=== PATIENT | female | born 1965 | race Caucasian/White ===

== ENCOUNTER 2017-11-11 19:39 | Emergency (ER) | payer MEDICARE, SELFPAY ==
[2017-11-11 19:41] VITALS: BP 133/79; PULSE 75; RESP 18; TEMP 36.7; O2SAT 99; BMI 27.8
[2017-11-11] MEDS: Orphenadrine 60 MG/2 ML Ampul IM (21:58)
[2017-11-11] MEDS: Ketorolac 15 MG/ML Vial IM (21:58)
--- NOTE | 2017-11-11 22:24 | ED.VISSUMM ---
- ER Visit Summary Date of Service: 11/11/17 Chief Complaint: Back pain History of Present Illness: The patient is a 52 F presenting for evaluation secondary to back pain. Patient states she is an onset of lower back pain over the course last 3-4 days she denies any injury associated with this. It is located in her lower back. There is some radiation to the left hip but nothing down the leg. She denies any bowel or bladder incontinence. Denies any fevers. Denies any personal history of IV drug abuse. No fevers or weight loss. Physical Examination: Vitals: Within normal limits General: Well-nourished well-developed no acute distress Head: Normocephalic atraumatic ENT: Moist mucous membranes Neck: Supple no JVD Cardiovascular: Heart regular rate and rhythm no murmurs Respiratory: Respirations nondistressed, lung sounds clear to auscultation bilaterally Abdominal: Soft, nontender, nondistended, normal bowel sounds, no evidence of abdominal masses or pulsatile mass Back: Normal to inspection, no midline tenderness to palpation, straight leg raise negative bilaterally, there is left paraspinal tenderness to palpation Extremities: Nontender, nonedematous, 2+ radial and PT pulses bilaterally symmetric Skin: Normal color no rash Neuro: 5/5 strength hip flexion, knee flexion, knee extension, dorsiflexion, plantarflexion, EHL. Sensation intact over all dermatomes of the lower extremities bilaterally, 2+ patellar and Achilles reflexes bilaterally symmetric, negative clonus bilaterally Test Results: None indicated Emergency Department Course and Treatment: Patient presented secondary to back pain. She has paraspinal pain, this seems mostly muscular in etiology. Patient was given a dose of Toradol and Norflex in the emergency department. Patient be discharged with a course of Naprosyn and Medrol for treatment of her pain. She was instructed to follow-up with her PCP. Disposition: Discharge Impression: 1. Lumbosacral strain This note was generated with [employer] dictation software. It may contain incorrect words, spelling, and punctuation that were not noted in review of the chart prior to signing ED Disposition - Plan for ED Patient: Disposition: Home or Assisted Living Chief Complaint: Back Diagnosis: Back pain Instructions: ED Neck Back Pain General Prescriptions: MethylPREDNISolone DosePak [Medrol DosePak] 4 mg PO UD #1 box Naproxen [Naprosyn] 500 mg PO BID PRN #20 tab Referrals: Argenis Dill, AIRCRAFT SALES REPRESENTATIVE-C [Primary Care Provider] - 5-7 Days
[2017-11-11 22:39] VITALS: BP 138/99; PULSE 69; RESP 18; O2SAT 99
== END 2017-11-11 22:40 | disposition home or self-care (01) ==
PROVIDERS: Emergency Provider Emergency Medicine; Family Provider Nurse Practitioner Family; PCP Nurse Practitioner Family
DX: S39.012A Strain of muscle, fascia and tendon of lower back, initial encounter (principal); X58.XXXA Exposure to other specified factors, initial encounter; Y93.9 Activity, unspecified; Y92.89 Other specified places as the place of occurrence of the external cause; Y99.9 Unspecified external cause status; Z98.1 Arthrodesis status
CPT/HCPCS: 96372; 99283

== ENCOUNTER → 2018-02-19 08:34 | Outpatient (CLI) | payer MEDICARE, SELFPAY ==
--- NOTE | 2018-02-19 08:43 | RAD_ITS ---
STUDY: X-RAY - ESOPHAGUS (BARIUM SWALLOW) WITH FLUOROSCOPY REASON FOR EXAM: Female, 52 years old. Dysphagia for solids. TECHNIQUE: 12 view(s) of the esophagus were obtained following swallowing of barium. FLUOROSCOPY TIME (if supplied): (0:25) minutes/seconds COMPARISON: None. FINDINGS: There is no demonstrated esophageal foreign body. There is no demonstrated stricture or mucosal abnormality. Normal gastroesophageal junction, without a demonstrated hiatal hernia. The patient ingested a 12 mm tablet of barium without any difficulty. Normal visualized aortic arch and descending thoracic aorta. Normal visualized pulmonary parenchyma. Normal visualized osseous structures of the thorax. RAD/Esophagus Only IMPRESSION: Normal plain film x-ray examination (barium swallow) of the esophagus. Electronically Signed: Iglesia Mendez MD at 10:04 EDT Tel [phone], Service support ,
--- NOTE | 2018-02-19 08:43 | RAD_ITS ---
STUDY: X-RAY CHEST REASON FOR EXAM: Female, 52 years old. Dysphagia. TECHNIQUE: PA and lateral views of the chest. COMPARISON: None. FINDINGS: The lungs are clear and expanded. Scattered calcified granulomas. There is no demonstrated pleural abnormality. Normal size heart. Normal mediastinum and tanya. Normal visualized pulmonary arteries. Normal visualized aortic arch and descending thoracic aorta. Normal visualized thoracic spine. Prior fusion of the lower cervical spine. There is no demonstrated abnormality of the visualized soft tissue structures of the upper abdomen. RAD/Chest PA and Lateral IMPRESSION: No acute abnormality is seen. Electronically Signed: Iglesia Mendez MD at 14:11 EDT Tel [phone], Service support ,
== END ==
PROVIDERS: Family Provider Nurse Practitioner Family; PCP Nurse Practitioner Family; Visit Provider Otolaryngology Otolaryngology/Facial Plastic Surgery
DX: R05 Cough (principal); R13.10 Dysphagia, unspecified; J02.9 Acute pharyngitis, unspecified
CPT/HCPCS: 71046; 74220; 87070; 87077; 87186

== ENCOUNTER 2018-05-07 08:35 | Observation (INO) | payer MEDICARE, SELFPAY ==
[2018-05-07] VITALS (13 sets, daily range): BP systolic 101–136; BP diastolic 56–85; PULSE 61–85; RESP 14–18; TEMP 36.4–36.7; O2SAT 94–98; BMI 29.7; BMI 29.2
--- NOTE | 2018-05-07 08:49 | ED.RN ---
CANNOT OBTAIN OLD EKG - MUSE IS DOWN
--- NOTE | 2018-05-07 08:56 | ED.VISSUMM ---
- ER Visit Summary Date of Service: 05/07/18 Chief Complaint: Chest pain History of Present Illness: The patient is a 52 F past medical history of high cholesterol and hypothyroidism. Patient has no known history of cardiac disease and states she had a negative stress test years ago but nothing done recently. She is complaining of intermittent chest pressure and heaviness over the last several weeks or longer. At times it is exertional. At times she does have shortness of breath and nausea. The last couple days she has had episodes of diaphoresis associated with it with pain radiating to her right arm and neck. She denies any pleuritic pain. No history of DVT or PE. No hemoptysis. No leg pain or swelling. She is a smoker and has smoked for years. She denies any melena. Physical Examination: Well-appearing middle-age female. Vital signs are stable afebrile. Pulse ox 97% on room air no hypoxia. H EENT exam unremarkable. Neck nontender no JVD. Lungs clear to auscultation bilaterally. Heart regular rate and rhythm no murmur. Chest wall has mild soreness. Abdomen is soft and nontender. Normal bowel sounds. No peritoneal signs. She is moving all 4 extremities. They are equal symmetrical. Calves are nontender. No edema or cords. Radial pulses are equal and symmetrical. Back nontender. Neurologic exam no focal motor deficits. Awake alert following commands. Test Results: Portable chest x-ray 1 view no acute abnormality read both by myself the radiologist. CBC normal. BMP unremarkable. Troponin normal. EKG sinus rhythm rate 85. There is ST segment flattening in 2 3 and aVF and also V4 5 and 6. There is no old EKG available for comparison. There is no [place]. Emergency Department Course and Treatment: Patient will receive p.o. aspirin. She will undergo a cardiac workup. Given she is 52, has a sister with a recent stent, a smoker and has a pretty good story for exertional shortness of breath and chest pain I will recommend admission. Treatment Plan: Repeat exam the patient is doing well on his results and she is comfortable being admitted and having further workup. I very spoken to the hospitalist Dr. Kailey Weller. And I am going to speak to 1 of the typesetters printer. Disposition: Admission Impression: Acute chest pain with exertional dyspnea Tobacco abuse This note was generated with [employer] dictation software. It may contain incorrect words, spelling, and punctuation that were not noted in review of the chart prior to signing ED Disposition - Plan for ED Patient: Chief Complaint: Chest Pain Referrals: Argenis Dill NP-C [Primary Care Provider] -
--- NOTE | 2018-05-07 08:59 | ED.DCSUM_ITS ---
- ER Visit Summary Date of Service: 05/07/18 Chief Complaint: Chest pain History of Present Illness: The patient is a 52 F past medical history of high cholesterol and hypothyroidism. Patient has no known history of cardiac disease and states she had a negative stress test years ago but nothing done recently. She is complaining of intermittent chest pressure and heaviness over the last several weeks or longer. At times it is exertional. At times she does have shortness of breath and nausea. The last couple days she has had episodes of diaphoresis associated with it with pain radiating to her right arm and neck. She denies any pleuritic pain. No history of DVT or PE. No hemoptysis. No leg pain or swelling. She is a smoker and has smoked for years. She denies any melena. Physical Examination: Well-appearing middle-age female. Vital signs are stable afebrile. Pulse ox 97% on room air no hypoxia. H EENT exam unremarkable. Neck nontender no JVD. Lungs clear to auscultation bilaterally. Heart regular rate and rhythm no murmur. Chest wall has mild soreness. Abdomen is soft and nontender. Normal bowel sounds. No peritoneal signs. She is moving all 4 extremities. They are equal symmetrical. Calves are nontender. No edema or cords. Radial pulses are equal and symmetrical. Back nontender. Neurologic exam no focal motor deficits. Awake alert following commands. Test Results: Portable chest x-ray 1 view no acute abnormality read both by myself the radiologist. CBC normal. BMP unremarkable. Troponin normal. EKG sinus rhythm rate 85. There is ST segment flattening in 2 3 and aVF and also V4 5 and 6. There is no old EKG available for comparison. There is no [place]. Emergency Department Course and Treatment: Patient will receive p.o. aspirin. She will undergo a cardiac workup. Given she is 52, has a sister with a recent stent, a smoker and has a pretty good story for exertional shortness of breath and chest pain I will recommend admission. Treatment Plan: Repeat exam the patient is doing well on his results and she is comfortable being admitted and having further workup. I very spoken to the hospitalist Dr. Kailey Weller. And I am going to speak to 1 of the supervisor toy parts former. Disposition: Admission Impression: Acute chest pain with exertional dyspnea Tobacco abuse This note was generated with [employer] dictation software. It may contain incorrect words, spelling, and punctuation that were not noted in review of the chart prior to signing ED Disposition - Plan for ED Patient: Chief Complaint: Chest Pain Referrals: Argenis Dill NP-C [Primary Care Provider] -
[2018-05-07 09:07] LABS: Absolute Lymphocyte Count 1.93 X10^3/ul (0.83-4.51); Absolute Neutrophil Count 5.2 X10^3/uL (2.0-7.7); Basophil# 0.02 X10^3/uL; Basophil% 0.3 % (0-1); Eosinophil# 0.13 X10^3/uL; Eosinophils% 1.6 % (0-5); Hematocrit 43.1 % (37-47); Hemoglobin 15.2 g/dl (12.0-15.0); Lymphocyte # 1.93 X10^3/ul (4.0); Lymphocyte % 24.5 % (19-41); Mean Corp Hgb Conc 35.3 g/gl (32-36); Mean Corpuscular Hgb 33.2 pg (27.0-32.0); Mean Corpuscular Volume 94.1 fL (81-99); Mean Platelet Vol. 11.6 fl (6.2-12.0); Monocyte# 0.57 X10^3/uL; Monocyte% 7.2 % (0-10); Neutrophil # 5.22 X10^3/uL (2.7-7.7); Neutrophil % 66.3 % (47-70); Platelet Count 145 K/mm3 (150-450); RBC Distribution Width CV 13.3 % (11.6-14.6); RBC Distribution Width SD 43.9 fl (35.1-43.9); Red Blood Count 4.58 M/mm3 (4.2-5.4); White Blood Count 7.9 K/mm3 (4.4-11.0)
[2018-05-07 09:08] LABS: POSITIVE COUNT NO; POSITIVE DIFFERENTIAL NO; POSITIVE MORPHOLOGY NO
[2018-05-07 09:24] LABS: Anion Gap 7 (5-15); BUN 17 mg/dL (7-18); BUN/Creat Ratio 19.1 RATIO (10-20); Calcium,Total 9.2 mg/dL (8.5-10.1); Chloride 107 mmol/L (98-107); Creatinine, Serum 0.89 mg/dL (0.55-1.02); EST Glomerular Filtration Rate 71 mL/min (>60); Est Glom Filt Rate - Afr Amer 86 mL/min (>60); Estimated Creatinine Clearance 57.06 ml/min; Glucose 165 mg/dL (74-106); Potassium 3.8 mmol/L (3.5-5.1); Sodium Level 140 mmol/L (136-145)
--- NOTE | 2018-05-07 09:36 | PCM.HP.STD ---
Problem List (1) Chest discomfort Status: Acute (2) COPD (chronic obstructive pulmonary disease) Status: Suspected Qualifiers: COPD type: unspecified COPD Qualified Code(s): J44.9 - Chronic obstructive pulmonary disease, unspecified (3) HLD (hyperlipidemia) Status: Chronic Qualifiers: Hyperlipidemia type: unspecified Qualified Code(s): E78.5 - Hyperlipidemia, unspecified (4) Chronic low back pain Status: Chronic Qualifiers: Back pain laterality: unspecified Sciatica presence: unspecified whether sciatica present Qualified Code(s): M54.5 - Low back pain; G89.29 - Other chronic pain (5) Hypothyroidism Status: Chronic Qualifiers: Hypothyroidism type: unspecified Qualified Code(s): E03.9 - Hypothyroidism, unspecified (6) Gastroesophageal reflux disease Status: Chronic Qualifiers: Esophagitis presence: esophagitis presence not specified Qualified Code(s): K21.9 - Gastro-esophageal reflux disease without esophagitis (7) Depression Status: Chronic Qualifiers: Depression Type: unspecified Qualified Code(s): F32.9 - Major depressive disorder, single episode, unspecified (8) Asthma Status: Chronic Qualifiers: Asthma severity: unspecified severity Asthma persistence: unspecified Asthma complication type: unspecified Qualified Code(s): J45.909 - Unspecified asthma, uncomplicated History of Present Illness Date of Admission: 05/07/18 Chief Complaint: Chest pain The patient is a 52 y/o F w/ PMHx: Tobacco use (09/24 ppd), HLD, Hypothyroidism, COPD, Anxiety and Depression, GERD, Chronic COPD, Overweight, Former Polysubstance abuse and EtOH abuse (Clean and sober x 9 years) who presents to the [facility] ED on 05/07/18 with history of ongoing intermittent chest discomfort described as pressure and tightness across the chest, occurring with both exertion and at rest, with onset initially this past Thursday with radiation into the jaw on the right side as well as the right upper extremity with resolution after several minutes with associated nausea, dyspnea and diaphoresis with return twice on Thursday lasting initially 10 minutes and the second time in our with resolution while in the emergency room. In the ED workup included T 97.9, heart rate 64, BP 113/74, respiratory rate 16, 98% room air, CBC unremarkable except platelet count 125, unremarkable BMP aside glucose 165, troponin normal ?1, EKG with no comparison but noted flattened T waves in II, III, aVF, V4, V5, V6, CXR without no acute process. In the ED Cardiology Dr. Rocha consulted per Dr. Weir with evaluation and decision for transition following admission to cardiac catheterization. In the ED patient administered ASA 324 mg po x 1, plavix load 300 mg po x 1. Past Medical History Past Medical History (Chronic Problems): Chronic Problems HLD (hyperlipidemia) (Chronic) Status post lumbar spinal fusion (Chronic) Chronic low back pain (Chronic) Hypothyroidism (Chronic) Gastroesophageal reflux disease (Chronic) Depression (Chronic) Asthma (Chronic) Allergies acetaminophen [From Percocet] Allergy (Verified 05/07/18 08:38) Hives famotidine [From Pepcid] Allergy (Verified 05/07/18 08:38) Other icosapent ethyl [From Vascepa] Allergy (Verified 05/07/18 08:38) Other lamotrigine [From Lamictal] Allergy (Verified 05/07/18 08:38) Shortness of breath latex Allergy (Verified 05/07/18 08:38) Hives oxycodone [From Percocet] Allergy (Verified 05/07/18 08:38) Hives Penicillins Allergy (Verified 05/07/18 08:38) Hives pravastatin [From Pravachol] Allergy (Verified 05/07/18 08:38) Hives topiramate Allergy (Verified 05/07/18 08:38) Other ziprasidone HCl [From Geodon] Allergy (Verified 05/07/18 08:38) Shortness of breath ziprasidone mesylate [From Geodon] Allergy (Verified 05/07/18 08:38) Shortness of breath Home Medications: Ambulatory Orders Medication Instructions Recorded Albuterol Inhaler [Ventolin Hfa] 2 puff INHALATION Q4H PRN PRN 04/06/14 Fluticasone/Salmeterol [Advair 1 puff INHALATION DAILY 04/06/14 500/50 Mcg Diskus] Loratadine [Claritin] 10 mg PO DAILY 04/06/14 Cyclobenzaprine [Flexeril] 5 mg PO BID PRN PRN 11/11/17 Sertraline HCl [Zoloft] 100 mg PO QHS 11/11/17 traZODone [Desyrel] 1 - 2 tab PO QHS PRN 11/11/17 Aspirin [Aspirin EC] 325 mg PO DAILY 05/07/18 Bacillus Coagulans [Probiotic] 1 each PO DAILY 05/07/18 Ergocalciferol [Vitamin D] 50,000 units PO QWEEK 05/07/18 Gemfibrozil [Lopid] 600 mg PO BID 05/07/18 Levothyroxine [Synthroid] 75 mcg PO DAILY 05/07/18 Metronidazole 500 mg PO BID 05/07/18 Multivitamin [Multiple Vitamins] 1 each PO DAILY 05/07/18 Pantoprazole Sodium [Protonix] 40 mg PO DAILY 05/07/18 Rosuvastatin Calcium [Crestor] 10 mg PO DAILY 05/07/18 Surgical History: - - Right breast cyst removal, hysterectomy, lumbar and cervical fusion, cholecystectomy, appendectomy, TMJ surgery, left arthroscopic shoulder surgery, left fifth finger amputation. 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 Tobacco Use: Cigarettes Alcohol: Sober - Sober ?9 years. Drugs: - - Clean status ?9 years, prior usage included cocaine, crank, crack, snorted as well as smoked and oral intake but no IV drug abuse history. - *Family History Maternal History Items: - - Maternal family history of high blood pressure, heart disease, anemia, breast cancer, vertigo. Paternal History Items: - - Paternal family history of hypertension, cancer, congestive heart failure, coronary artery disease status post CABG, gout, diabetes. Sibling History Items: - - Sister with history of diabetes as well as coronary disease. Review of Systems Constitutional: Reports: Malaise, Weakness, Fatigue. Denies: Chills, Fever, Weight Change HEENT: Reports: Head Aches. Denies: Sinus Congestion, Sinus Drainage Cardiovascular: Reports: Chest Pain, Chest Pressure, Chest Tightness. Denies: Palpitations Respiratory: Reports: Shortness of Breath. Denies: Cough, Shortness of breath at rest, Sputum production Gastrointestinal: Reports: Nausea. Denies: Abdominal Pain, Vomiting Genitourinary: Denies: Dysuria Musculoskeletal: Denies: Joint Pain, Joint Tenderness Skin: Denies: Rash, Wounds Neurological: Denies: Numbness, Tingling, Focal weakness Psychiatric: Reports: Anxiety, Depression. 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 Patient Problems: Active and Suspected Problems Chest discomfort (Acute) COPD (chronic obstructive pulmonary disease) (Suspected) Subjective: Seated upright in bed, no acute distress, no current chest discomfort. Objective: Physical Examination: General: awake, alert, oriented x 3 and cooperative, seated upright in bed in no apparent distress. Skin: normal color, turgor, no icterus, cyanosis. HEENT: AT/NC, EOMI, PERRLA, MMM, no carotid bruits or JVD noted. Lungs: CTA bilaterally, moderate effort, mild decrease BL bases, no rales, ronchi or wheezing. Heart: Regular rate and rhythm; no gallop, rub audible. Abdomen: soft, overweight, NTTP, ND, normal BS, no HSM. Extremities: no cyanosis, clubbing, or edema, status post left hand fifth digit amputation. Neurological: patient awake, alert, oriented x 3; cognitive function intact; pupils equally reactive to light and accomodation; cranial nerves II-XII grossly normal, moving all 4 extremities, no focal deficits, strength preserved. Psychiatric: affect appears anxious with transition to cardiac catheterization, no acute evidence of depressive feelings. - Physical Exam Vital Signs Temp Pulse Resp BP Pulse Ox 97.5 F L 85 14 136/85 H 97 05/07/18 08:36 05/07/18 08:36 05/07/18 08:36 05/07/18 08:36 05/07/18 08:36 Oxygen Delivery Method Room Air Weight: 157 lb 6.561 oz Body Mass Index (BMI) 29.7 Finger Stick Blood Glucose 68 Laboratory Tests Past 24 Hrs 05/07/18 05/07/18 09:00 09:00 WBC 7.9 RBC 4.58 Hgb 15.2 H Hct 43.1 MCV 94.1 MCH 33.2 H MCHC 35.3 RDW 13.3 RDW Differential 43.9 Plt Count 145 L MPV 11.6 Immature Gran % (Auto) 0.100 Neut % (Auto) 66.3 Lymph % (Auto) 24.5 [place] % (Auto) 7.2 Eos % (Auto) 1.6 Baso % (Auto) 0.3 Absolute Neuts (auto) 5.2 Absolute Lymphs (auto) 1.93 Total Counted Not Reportable Sodium 140 Potassium 3.8 Chloride 107 Carbon Dioxide 26.0 Anion Gap 7 BUN 17 Creatinine 0.89 Estim Creat Clear Calc 57.06 Est GFR (MDRD) Af Amer 86 Est GFR (MDRD) Non-Af 71 BUN/Creatinine Ratio 19.1 Glucose 165 H Calcium 9.2 Troponin I < 0.015 Assessment/Plan All Active Problems Chest discomfort (Acute) The patient is a 52 y/o F w/ PMHx: Tobacco use (09/24 ppd), HLD, Hypothyroidism, COPD, Anxiety and Depression, GERD, Chronic COPD, Overweight, Former Polysubstance abuse and EtOH abuse who presents to the [facility] ED on 05/07/18 with history of ongoing intermittent chest discomfort described as pressure and tightness across the chest, occurring with both exertion and at rest, with onset initially this past Thursday with radiation into the jaw on the right side as well as the right upper extremity with resolution after several minutes with associated nausea, dyspnea and diaphoresis with return twice on Thursday lasting initially 10 minutes and the second time in our with resolution while in the emergency room. (1) Chest Pain w/ concern for ACS: ED workup included T 97.9, heart rate 64, BP 113/74, respiratory rate 16, 98% room air, CBC unremarkable except platelet count 125, unremarkable BMP aside glucose 165, troponin normal ?1, EKG with no comparison but noted flattened T waves in II, III, aVF, V4, V5, V6, CXR without no acute process. In the ED patient administered ASA 324 mg po x 1, plavix load 300 mg po x 1. Will admit to PCU, maintain on a monitored bed, continue serial cardiac enzymes and EKGs. Obtained magnesium level upon admission, 2.0, normal. Continue medical management w/ asa, plavix loaded as noted, hold on addition BB given low normal BP, statin w/ AM FLP. Cardiology consulted, plan for cardiac catheterization. Maintain NPO. ASA, NG, morphine. If cardiac catheterization negative given resolution of symptoms would plan discharge to home if cardiology amenable. (2) Asthma/Suspected Chronic COPD: ATC duonebs, PRN albuterol, HOB, IS parameters. (3) Hyperlipidemia: Continue home statin regimen. AM FLP. (4) Hypothyroidism: Continue home synthroid regimen, TSH and FT4 obtained, normal. (5) Tobacco Abuse: Encouraged cessation, inpatient consultation per RT, NR if desired. (6) Anxiety and depression: Continue home Zoloft and trazodone regimen. (7) Thrombocytopenia, mild: Admission platelet 145, unclear baseline. (8) GERD: Continue home Protonix regimen. (9) Former polysubstance abuse, alcohol abuse history: Confirmed clean and sober ?9 years, encouraged continuation of this pathway. (10) Migraine Headaches: If cardiac catheterization unremarkable, her presentation could potentially due to an atypical complex migraine. Currently resolved as noted. (11) Recent Bacterial Vaginosis: Continue BID flagyl regimen. (12) DVT prophylaxis: SCDs, holding lovenox for planned cardiac catheterization per Dr. Rocha. Code Visit OBSV E&M: [id number] Initial observation care L3
[2018-05-07 11:12] LABS: Hemoglobin A1c 5.4 % (4.2-6.3)
[2018-05-07 11:13] LABS: T4 Free Direct 0.77 ng/dL (0.76-1.46); Thyroid Stim Hormone (TSH) 2.06 uIU/mL (0.358-3.74)
[2018-05-07] MEDS: 0.9% Normal Saline 1,000 ML 100 ML IV (11:28)
--- NOTE | 2018-05-07 12:30 | NURSING ---
Called report to Riki frances RN
[2018-05-07] MEDS: Clopidogrel Bisulfate 300 MG Tablet PO (13:09)
--- NOTE | 2018-05-07 13:20 | PCM.CONS.C ---
Reason for Consult Date of Consultation: 05/07/18 Reason for Consultation: Chest pain. History of Present Illness: The patient is a 52 year old F no previous cardiac history but a strong family history of coronary artery disease who presents to the emergency room complaining of chest discomfort which she says has been intermittent over the last few weeks. She had an episode yesterday as well as today described as a heaviness radiating to the right side of her jaw. There was no diaphoresis no nausea no dizziness or vomiting. Due to the concerns of the above as well as the increasing frequency she presented to the emergency room where she was evaluated. Her EKG did not demonstrate any significant abnormalities at this time. Initial troponins were negative she was admitted to the telemetry unit cardiology was consulted from the emergency room. [] Past Medical History Allergies/Adverse Reactions: Allergies acetaminophen [From Percocet] Allergy (Verified 05/07/18 08:38) Hives famotidine [From Pepcid] Allergy (Verified 05/07/18 08:38) Other icosapent ethyl [From Vascepa] Allergy (Verified 05/07/18 08:38) Other lamotrigine [From Lamictal] Allergy (Verified 05/07/18 08:38) Shortness of breath latex Allergy (Verified 05/07/18 08:38) Hives oxycodone [From Percocet] Allergy (Verified 05/07/18 08:38) Hives Penicillins Allergy (Verified 05/07/18 08:38) Hives pravastatin [From Pravachol] Allergy (Verified 05/07/18 08:38) Hives topiramate Allergy (Verified 05/07/18 08:38) Other ziprasidone HCl [From Geodon] Allergy (Verified 05/07/18 08:38) Shortness of breath ziprasidone mesylate [From Geodon] Allergy (Verified 05/07/18 08:38) Shortness of breath Home Medications: Ambulatory Orders Medication Instructions Recorded Albuterol Inhaler [Ventolin Hfa] 2 puff INHALATION Q4H PRN PRN 04/06/14 Fluticasone/Salmeterol [Advair 1 puff INHALATION DAILY 04/06/14 500/50 Mcg Diskus] Loratadine [Claritin] 10 mg PO DAILY 04/06/14 Cyclobenzaprine [Flexeril] 5 mg PO BID PRN PRN 02/21/18 Sertraline HCl [Zoloft] 100 mg PO QHS 11/11/17 traZODone [Desyrel] 1 - 2 tab PO QHS PRN 11/11/17 Aspirin [Aspirin EC] 325 mg PO DAILY 05/07/18 Bacillus Coagulans [Probiotic] 1 each PO DAILY 05/07/18 Ergocalciferol [Vitamin D] 50,000 units PO QWEEK 05/07/18 Gemfibrozil [Lopid] 600 mg PO BID 05/07/18 Levothyroxine [Synthroid] 75 mcg PO DAILY 05/07/18 Metronidazole 500 mg PO BID 05/07/18 Multivitamin [Multiple Vitamins] 1 each PO DAILY 05/07/18 Pantoprazole Sodium [Protonix] 40 mg PO DAILY 05/07/18 Rosuvastatin Calcium [Crestor] 10 mg PO DAILY 05/07/18 Past Medical History (Chronic Problems): Chronic Problems Status post lumbar spinal fusion (Chronic) Chronic low back pain (Chronic) Hypothyroidism (Chronic) Gastroesophageal reflux disease (Chronic) Depression (Chronic) Asthma (Chronic) Surgical History: spinal fusion Smoking Status: Current every day smoker Alcohol: Occasional Drugs: Cocaine, Marijuana Review of Systems - Review of Systems General: Denies: Fever, Night Sweats, Fatigue Cardiovascular: Reports: Chest Discomfort at Rest, Chest Discomfort with Exertion. Denies: Chest Discomfort, Shortness of Breath, Orthopnea, PND, Peripheral Edema, Palpitations, Lightheadedness, Dizziness, Near Syncope, Syncope Respiratory: Denies: Cough, Sputum Production, Hemoptysis Gastrointestinal: Denies: Hematemesis, Hematochezia, Melena Genitourinary: Denies: Dysuria, Hematuria Skin: Denies: Rash Subjectve: Pleasant lady in no apparent distress Objective: Vital Signs Temp Pulse Resp BP Pulse Ox 97.9 F 65 16 110/69 98 05/07/18 10:40 05/07/18 11:00 05/07/18 10:40 05/07/18 10:41 05/07/18 10:40 Oxygen Flow Rate (L/min) 2 Oxygen Delivery Method Room Air Weight: 154 lb 8.705 oz Body Mass Index (BMI) 29.2 General: Awake, Alert, Oriented x 3 HEENT: PERRL, EOMI, Sclera Non Icteric Neck: Supple, Good ROM, No Lymph Node Enlargement Lungs: Clear to auscultation Cardiovascular: Regular Rhythm, Normal S1, Normal S2, No Murmurs, No Rubs, No Gallops Vascular: No Carotid Bruits, Normal Femoral Pulses, Normal Radial Pulses, Normal Dorsalis Pedal Pulse, Normal Posterior Tibial Pulses Abdomen: Bowel Sounds Present, Soft, Non Tender, No HSM, No Organomegaly Extremities: No Cyanosis, No Clubbing, No edema Neurological: No Focal Motor or Sensory Deficit 05/07/18 12:00: Troponin I < 0.015 Rhythm: EKG: Normal sinus rhythm with no acute changes rate of 65 bpm is noted. Assessment/Plan 1. Chest pain. Patient presents with chest pain which appears to be concerning for angina. She has had worsening of the discomfort over the last few weeks as well as a strong family history of coronary disease as well as drug use. Due to the above constellation of findings it was felt that the prudent approach would be to evaluate her coronary anatomy to definitively exclude coronary artery disease. This was discussed with the patient and her family as well as the hospitalist. All in agreement. The above will be performed later today and further recommendations made. 2. Hyperlipidemia Will institute aggressive risk factor modification with statin. 3. Tobacco use Patient has been significantly counseled regarding the above. Thank you for allowing me to participate in the care of your patient. Please don't hesitate to call if any issues arise
[2018-05-07 13:23] LABS: Pregnancy, Serum, hCG Quali. NEGATIVE Negative (0-9 Nonpreg)
--- NOTE | 2018-05-07 14:55 | PCM.DC ---
- Discharge Diagnoses Current Active Problems: Current Active and Chronic Problems (1) Chest Pain w/ concern for ACS, RULED OUT, unremarkable cardiac catheterization, Unclear Specific Etiology, Possible Atypical Complex Migraine, RESOLVED (2) Asthma/Suspected Chronic COPD (3) Hyperlipidemia (4) Hypothyroidism, TSH and FT4 normal. (5) Tobacco Abuse (6) Anxiety and depression (7) Thrombocytopenia, mild, unclear baseline. (8) GERD (9) Former polysubstance abuse, alcohol abuse history (10) Migraine Headaches (11) Recent Bacterial Vaginosis You will use the following diet at home:: Cardiac Your food should be the consistency of: Regular Your liquids should be the consistency of: Regular/Thin Discharge Activity: - - Please maintain post-cardiac catheterization parameters per Cardiolog direction. Call your doctor if you observe: Fever of 101 or Higher, Inability to urinate, Inability to have a bowel movement, Shortness of breath, Dizziness, Fainting spells, Chest pain, Uncontrolled pain Instructions: ED Chest Pain Atypical Unkn Cause, ED Chest Pain NonCardiac, Tips for Quitting Smoking (Cardiovascular), Why Do You Smoke?, Planning to Quit Smoking, Getting Support for Quitting Smoking Allergies/Adverse Reactions: Allergies acetaminophen [From Percocet] Allergy (Verified 05/07/18 08:38) Hives famotidine [From Pepcid] Allergy (Verified 05/07/18 08:38) Other icosapent ethyl [From Vascepa] Allergy (Verified 05/07/18 08:38) Other lamotrigine [From Lamictal] Allergy (Verified 05/07/18 08:38) Shortness of breath latex Allergy (Verified 05/07/18 08:38) Hives oxycodone [From Percocet] Allergy (Verified 05/07/18 08:38) Hives Penicillins Allergy (Verified 05/07/18 08:38) Hives pravastatin [From Pravachol] Allergy (Verified 05/07/18 08:38) Hives topiramate Allergy (Verified 05/07/18 08:38) Other ziprasidone HCl [From Geodon] Allergy (Verified 05/07/18 08:38) Shortness of breath ziprasidone mesylate [From Geodon] Allergy (Verified 05/07/18 08:38) Shortness of breath Medications to take at Discharge Albuterol Inhaler [Ventolin Hfa] 2 puff INHALATION Q4H PRN PRN 04/06/14 Fluticasone/Salmeterol [Advair 500/50 Mcg Diskus] 1 puff INHALATION DAILY 04/06/14 Loratadine [Claritin] 10 mg PO DAILY 04/06/14 Cyclobenzaprine [Flexeril] 5 mg PO BID PRN PRN 11/11/17 Sertraline HCl [Zoloft] 100 mg PO QHS 11/11/17 traZODone [Desyrel] 1 - 2 tab PO QHS PRN 11/11/17 Aspirin [Aspirin EC] 325 mg PO DAILY 05/07/18 Bacillus Coagulans [Probiotic] 1 each PO DAILY 05/07/18 Ergocalciferol [Vitamin D] 50,000 units PO QWEEK 05/07/18 Gemfibrozil [Lopid] 600 mg PO BID 05/07/18 Levothyroxine [Synthroid] 75 mcg PO DAILY 05/07/18 Metronidazole 500 mg PO BID 05/07/18 Multivitamin [Multiple Vitamins] 1 each PO DAILY 05/07/18 Nicotine [Nicoderm Cq] 7 mg TRANSDERM. DAILY PRN #14 patch 05/07/18 Pantoprazole Sodium [Protonix] 40 mg PO DAILY 05/07/18 Rosuvastatin Calcium [Crestor] 10 mg PO DAILY 05/07/18 The following prescriptions were given: Nicotine [Nicoderm Cq] 7 mg TRANSDERM. DAILY PRN #14 patch PRN Reason: Nicotine Craving Primary Care Physician: Argenis Dill NP-C [Primary Care Provider] - Please follow up with your Primary Care Physician in: Follow-up within 3-5 days to review admission. Test Results: Test results from this visit will be discussed in further detail at your follow-up appointment, if applicable. Proposed Discharge Date: 05/07/18
--- NOTE | 2018-05-07 15:23 | PCM.DC.SUM ---
Discharge Date and Diagnosis - Problem List Patient Problems: Active and Suspected Problems Chest discomfort (Acute) COPD (chronic obstructive pulmonary disease) (Suspected) Date of Admission: 05/07/18 Date of Discharge: 05/07/18 - Primary Discharge Diagnosis Active and Suspected Problems (1) Chest Pain w/ concern for ACS, RULED OUT, unremarkable cardiac catheterization, Unclear Specific Etiology, Possible Atypical Complex Migraine, RESOLVED (2) Asthma/Suspected Chronic COPD (3) Hyperlipidemia (4) Hypothyroidism, TSH and FT4 normal. (5) Tobacco Abuse (6) Anxiety and depression (7) Thrombocytopenia, mild, unclear baseline. (8) GERD (9) Former polysubstance abuse, alcohol abuse history (10) Migraine Headaches (11) Recent Bacterial Vaginosis - Secondary Discharge Diagnosis Chronic Problems HLD (hyperlipidemia) (Chronic) Status post lumbar spinal fusion (Chronic) Chronic low back pain (Chronic) Hypothyroidism (Chronic) Gastroesophageal reflux disease (Chronic) Depression (Chronic) Asthma (Chronic) Hospital Course and Treatment Dr. Rocha Cardiology Operations: None Procedures: Cardiac catheterization, EKG Summary of Care Provided: The patient is a 52 y/o F w/ PMHx: Tobacco use (/ ppd), HLD, Hypothyroidism, COPD, Anxiety and Depression, GERD, Chronic COPD, Overweight, Former Polysubstance abuse and EtOH abuse (Clean and sober x 9 years) who presented to the [facility] ED on 05/07/18 with history of ongoing intermittent chest discomfort described as pressure and tightness across the chest, occurring with both exertion and at rest, with onset initially this past Thursday with radiation into the jaw on the right side as well as the right upper extremity with resolution after several minutes with associated nausea, dyspnea and diaphoresis with return twice on Thursday lasting initially 10 minutes and the second time in our with resolution while in the emergency room. In the ED workup included T 97.9, heart rate 64, BP 113/74, respiratory rate 16, 98% room air, CBC unremarkable except platelet count 125, unremarkable BMP aside glucose 165, troponin normal ?1, EKG with no comparison but noted flattened T waves in II, III, aVF, V4, V5, V6, CXR without no acute process. In the ED Cardiology Dr. Rocha consulted per Dr. Weir with evaluation and decision for transition following admission to cardiac catheterization. In the ED patient administered ASA 324 mg po x 1, plavix load 300 mg po x 1. Patient was admitted to PCU, maintained on a monitored bed, continued serial cardiac enzyme trending which remained unremarkable. Obtained magnesium level upon admission, 2.0, normal. TSH and FT4 unremarkable. Continued medical management w/ asa, plavix loaded as noted, hold on addition BB given low normal BP, statin w/ AM FLP. Cardiac catheterization performed w/ noted normal coronary arteries with preserved LV systolic function and normal EDP, normal LV size, wall motion and systolic function with recommended continue medical therapy. Given patient resolution of chest discomfort and no further reoccurrence per clearance per cardiology patient discharged to home with recommended follow-up with primary care physician. Additionally encouraged tobacco cessation and nicotine replacement offered upon discharge. Discharge Activity: - - Please maintain post-cardiac catheterization parameters per Cardiolog direction. Call your doctor if you observe: Fever of 101 or Higher, Inability to urinate, Inability to have a bowel movement, Shortness of breath, Dizziness, Fainting spells, Chest pain, Uncontrolled pain Home Medications: Medications to take at Discharge Albuterol Inhaler [Ventolin Hfa] 2 puff INHALATION Q4H PRN PRN 04/06/14 Fluticasone/Salmeterol [Advair 500/50 Mcg Diskus] 1 puff INHALATION DAILY 04/06/14 Loratadine [Claritin] 10 mg PO DAILY 04/06/14 Cyclobenzaprine [Flexeril] 5 mg PO BID PRN PRN 11/11/17 Sertraline HCl [Zoloft] 100 mg PO QHS 11/11/17 traZODone [Desyrel] 1 - 2 tab PO QHS PRN 11/11/17 Aspirin [Aspirin EC] 325 mg PO DAILY 05/07/18 Bacillus Coagulans [Probiotic] 1 each PO DAILY 05/07/18 Ergocalciferol [Vitamin D] 50,000 units PO QWEEK 05/07/18 Gemfibrozil [Lopid] 600 mg PO BID 05/07/18 Levothyroxine [Synthroid] 75 mcg PO DAILY 05/07/18 Metronidazole 500 mg PO BID 05/07/18 Multivitamin [Multiple Vitamins] 1 each PO DAILY 05/07/18 Nicotine [Nicoderm Cq] 7 mg TRANSDERM. DAILY PRN #14 patch 05/07/18 Pantoprazole Sodium [Protonix] 40 mg PO DAILY 05/07/18 Rosuvastatin Calcium [Crestor] 10 mg PO DAILY 05/07/18 Following Prescrptions Were Given to Patient: Nicotine [Nicoderm Cq] 7 mg TRANSDERM. DAILY PRN #14 patch PRN Reason: Nicotine Craving Primary Care Physician: Argenis Dill NP-C [Primary Care Provider] - Please follow up with your Primary Care Physician in: Follow-up within 3-5 days to review admission. Patient Instructions: Tips for Quitting Smoking (Cardiovascular), Why Do You Smoke?, Planning to Quit Smoking, Getting Support for Quitting Smoking, ED Chest Pain NonCardiac, ED Chest Pain Atypical Unkn Cause Disposition: Home Minutes spent on discharge:: 35 Patient Condition:: Fair Medical Necessity - Tobacco Use Smoking Status: Current every day smoker - Currently one fourth pack per day tobacco use but up to 1 pack per day, cigarette tobacco usage since teenager. Tobacco Use: Cigarettes Meaningful Use Info Meaningful Use Diagnoses (Choose all that apply): None applicable Code Visit OBSV E&M: 60774 Observ/hosp same date L3
== END 2018-05-07 14:58 | disposition home or self-care (01) ==
LOC: ED 09:05 → PCU 10:02
PROVIDERS: Internal Medicine Cardiovascular Disease; Admitting Provider Family Medicine; Emergency Provider Emergency Medicine; Family Provider Nurse Practitioner Family; PCP Nurse Practitioner Family; Visit Provider Family Medicine
DX: R07.89 Other chest pain (principal); K21.9 Gastro-esophageal reflux disease without esophagitis; E03.9 Hypothyroidism, unspecified; M43.26 Fusion of spine, lumbar region; F32.9 Major depressive disorder, single episode, unspecified; E78.5 Hyperlipidemia, unspecified; J44.9 Chronic obstructive pulmonary disease, unspecified; M54.5 Low back pain; G89.29 Other chronic pain; Z82.49 Family history of ischemic heart disease and other diseases of the circulatory system; Z79.899 Other long term (current) drug therapy; Z79.82 Long term (current) use of aspirin; F19.11 Other psychoactive substance abuse, in remission; F10.11 Alcohol abuse, in remission; R11.0 Nausea; F17.210 Nicotine dependence, cigarettes, uncomplicated; D69.6 Thrombocytopenia, unspecified; G43.909 Migraine, unspecified, not intractable, without status migrainosus; N76.0 Acute vaginitis
CPT/HCPCS: 71045; 80048; 83036; 83735; 84439; 84443; 84484; 84703; 85025; 93005; 93458; 96360; 96361; 97802; 99152; 99153; 99218; 99285; J7030; Q9967; A4216; C1769; C1894; G0378

== ENCOUNTER → 2018-05-21 07:31 | Outpatient (CLI) | payer MEDICARE, SELFPAY | PROVIDERS: Family Provider Nurse Practitioner Family; PCP Nurse Practitioner Family | DX: Z12.31 Encounter for screening mammogram for malignant neoplasm of breast (principal) | CPT/HCPCS: 77063; 77067 ==

== ENCOUNTER → 2018-06-04 15:41 | Outpatient (CLI) | payer MEDICARE, SELFPAY | PROVIDERS: Family Provider Nurse Practitioner Family; PCP Nurse Practitioner Family; Visit Provider Otolaryngology Otolaryngology/Facial Plastic Surgery | DX: R13.10 Dysphagia, unspecified (principal) | CPT/HCPCS: 87070 ==

== ENCOUNTER → 2018-06-15 12:27 | Outpatient (CLI) | payer MEDICARE, SELFPAY ==
--- NOTE | 2018-06-15 12:30 | ECHOD_ITS ---
Reason For Study: TIA Procedure This was a 2D Doppler, Color Flow transthoracic echocardiogram. The exam was of fair technical quality due to diminished acoustic windows. Exam performed in department. Left Ventricle Normal LV size. Left ventricular systolic function is normal. The estimated ejection fraction is 60 %. Diastolic function is indeterminate. No regional wall motion abnormalities noted. Right Ventricle Normal RV size. Normal systolic function. Atria Normal left atrium. Normal right atrium. No doppler evidence for ASD. Bubble contrast study negative for right to left interatrial shunt. Mitral Valve There is no mitral annular calcification. Normal mitral valve. Trivial mitral valve insufficiency. Tricuspid Valve Normal tricuspid valve. Trivial tricuspid valve insufficiency. Right ventricular systolic pressure estimated to be 21 mmHg. Aortic Valve Trisinus/trileaflet aortic valve. Normal aortic valve. Pulmonic Valve The pulmonic valve is not well visualized. Great Vessels Normal sized aortic root. Pericardium/Pleural No pericardial effusion. Medication 22 gauge I.V. with prn adaptor inserted into right arm. Performed a rapid injection of agitated mix of 9 cc saline and 1cc air to assess for atrial septal defect. MMode/2D Measurements & Calculations LVIDd: 4.3 cm IVSd: 0.79 cm Ao root diam: 3.1 cm LVIDs: 3.0 cm LVPWd: 0.86 cm LA dimension: 3.6 cm RVDd: 3.0 cm FS: 30.5 % LAV(MOD-bp): 48.4 ml LVAd ap4: 24.7 cm2 SV(MOD-sp4): 41.6 ml LAV(MOD-bp) Indexed: 28.6 ml/m2 EDV(MOD-sp4): 70.7 ml LAV(MOD-sp2): 53.2 ml EDV(sp4-el): 72.1 ml LAV(MOD-sp4): 43.1 ml LVAs ap4: 14.0 cm2 ESV(MOD-sp4): 29.1 ml ESV(sp4-el): 28.6 ml EF(MOD-sp4): 58.8 % EF(sp4-el): 60.3 % SV(sp4-el): 43.5 ml LA A4 area: 16.9 cm2 RA A4 area: 15.4 cm2 Time Measurements MV dec time: 0.26 sec Doppler Measurements & Calculations MV E max sathish: 89.7 cm/sec Lat Peak E' Sathish: 7.6 cm/sec Med Peak E' Sathish: 7.6 cm/sec MV A max sathish: 76.4 cm/sec E/E' lat: 11.9 E/E' med: 11.8 MV E/A: 1.2 Ao V2 max: 126.0 cm/sec LV V1 max: 89.9 cm/sec PA V2 max: 73.0 cm/sec Ao max P.4 mmHg LV V1 max P.2 mmHg TR max sathish: 206.9 cm/sec TR max P.6 mmHg Interpretation Summary Left ventricular systolic function is normal. The estimated ejection fraction is 60 %. Trivial mitral valve insufficiency. Trivial tricuspid valve insufficiency. Right ventricular systolic pressure estimated to be 21 mmHg. Diastolic function is indeterminate. Ordering Physician: Deondre Polo Referring Physician: Deondre Polo Performed By: Chayo Rey, AMANDEEP, RVT
== END ==
PROVIDERS: Family Provider Nurse Practitioner Family; PCP Nurse Practitioner Family; Referring Provider Psychiatry & Neurology Neurology; Visit Provider Psychiatry & Neurology Neurology
DX: Z86.73 Personal history of transient ischemic attack (TIA), and cerebral infarction without residual deficits (principal)
CPT/HCPCS: 93306; A4216

== ENCOUNTER 2018-06-27 16:42 | Emergency (ER) | payer MEDICARE, SELFPAY ==
[2018-06-27 16:43] VITALS: BP 124/73; PULSE 83; RESP 16; TEMP 36.8; O2SAT 95; BMI 29.6
--- NOTE | 2018-06-27 17:12 | ED.DCSUM_ITS ---
- ER Visit Summary Date of Service: 06/27/18 Chief Complaint: Nose injury History of Present Illness: The patient is a 52 F presenting with injury to her nose. She was hit in the nose with her washing machine lid just prior to arrival. Her nose did not bleed. She did not lose consciousness. She has had no vomiting. Denies other complaints. She did not take medication prior to arrival. Physical Examination: Vitals are stable. Patient is afebrile. Alert no acute distress. HEENT exam mild superficial abrasion to the nose. No septal hematoma. Tenderness to the nasal bridge, mild swelling. Neck is nontender Lungs are clear and equal bilaterally. Heart is regular rate and rhythm. Extremities are unremarkable. Skin is warm and dry. No focal neurologic deficit. Remainder of exam is unremarkable. Emergency Department Course and Treatment: Patient already has a scheduled appointment with ENT on Thursday. She declines x-rays at this time. She is advised to ice and use NSAIDs for pain. Advised to follow-up with ENT. Advised return to ED if worsening complaints. Disposition: Discharge home Impression: Nose injury This note was generated with [employer] dictation software. It may contain incorrect words, spelling, and punctuation that were not noted in review of the chart prior to signing ED Disposition - Plan for ED Patient: Chief Complaint: Head Injury Referrals: Argenis Dill NP-C [Primary Care Provider] -
--- NOTE | 2018-06-27 17:16 | ED.DEP ---
ED Disposition - Plan for ED Patient: Chief Complaint: Head Injury Instructions: ED Contusion Nasal Vs Fx No X Ray Referrals: Argenis Dill NP-C [Primary Care Provider] - Rios Jackson MD [STAFF PHYSICIAN] -
[2018-06-27] MEDS: Ibuprofen 600 MG Tablet PO (17:18)
[2018-06-27 17:19] VITALS: PULSE 78; RESP 14; O2SAT 98
== END 2018-06-27 17:23 | disposition home or self-care (01) ==
LOC: ED 17:17
PROVIDERS: Emergency Provider Emergency Medicine; Family Provider Nurse Practitioner Family; PCP Nurse Practitioner Family
DX: S00.31XA Abrasion of nose, initial encounter (principal); W22.8XXA Striking against or struck by other objects, initial encounter; Y93.9 Activity, unspecified; Y92.89 Other specified places as the place of occurrence of the external cause; Y99.9 Unspecified external cause status; E78.00 Pure hypercholesterolemia, unspecified; Z86.73 Personal history of transient ischemic attack (TIA), and cerebral infarction without residual deficits; Z72.0 Tobacco use
CPT/HCPCS: 99282

== ENCOUNTER 2018-07-06 18:07 | Emergency (ER) | payer MEDICARE, SELFPAY ==
[2018-07-06 18:08] VITALS: BP 146/85; PULSE 88; RESP 16; TEMP 36.4; O2SAT 97; BMI 29.8
--- NOTE | 2018-07-06 19:03 | ED.VISSUMM ---
- ER Visit Summary Date of Service: 07/06/18 Chief Complaint: Left foot and left hip pain History of Present Illness: The patient is a 52 F nontraumatic pain left foot for months. Unclear of any injuries. Has not been evaluated for this. Nontraumatic left hip pain for last week. Denies any new activities. Was able to mow her lawn 3 days ago. She is walking with this. Multiple orthopedic surgeries in the past. She had a right hip injury falling off a horse over the summer. She was referred to [facility] however they did not accept her insurance and is being referred elsewhere. Using high-dose aspirin along with as needed Aleve. 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 No history of gastric ulcers or kidney injury. Physical Examination: General: Alert and oriented ?3, no acute distress HEENT: Normocephalic, atraumatic. Moist mucosa membranes Neck: supple, nontender. Cardiovascular: Regular rate and rhythm, no murmurs Respiratory: Normal breath sounds, symmetric, no distress Abdomen: Soft, nontender, nondistended Extremities: Left lower extremity: No shortening or rotated. Negative logroll. Knee extensor is intact. Ankle without tenderness. Foot examination midfoot along with proximal fifth base tenderness. Skin intact. No deformities. Neurovascular intact distally. Neuro: no focal neurological deficits. Test Results: Left hip x-ray and left foot x-ray: No fracture or dislocation Emergency Department Course and Treatment: Patient denies any trauma. Pain hip and foot x-rays obtained negative. With foot pain midfoot and proximal fifth base concerns of more sprain. Javan wrap provided. Rice therapy. Hip x-ray negative for fracture. She is ambulating. She denies any crutches. Continue her Aleve and aspirin at home. She will have an upcoming orthopedic evaluation. Treatment Plan: [] Disposition: Discharge Impression: 1. Left foot sprain 2. Left hip pain This note was generated with [employer] dictation software. It may contain incorrect words, spelling, and punctuation that were not noted in review of the chart prior to signing ED Disposition - Plan for ED Patient: Disposition: Home or Assisted Living Chief Complaint: Lower Extremity Injury Diagnosis: Sprain of left foot, Left hip pain Instructions: ED Contusion Hip, ED Sprain Foot Referrals: Swihart,Argenis, PROVIDER RELATIONS CONSULTANT-C [Primary Care Provider] - 5-7 Days
--- NOTE | 2018-07-06 19:15 | RAD_ITS ---
STUDY: X-RAY - PELVIS AND LEFT HIP REASON FOR EXAM: Female, 52 years old. Left hip pain TECHNIQUE: Radiological exam, hip, unilateral, with pelvis when performed; 2 or 3 views. COMPARISON: None. FINDINGS: There is a normal bowel gas pattern. Normal visualized soft tissue structures. Normal bilateral iliac wings, sacroiliac joints and visualized sacrum. Normal bilateral superior and inferior pubic rami. Normal pubic symphysis. Normal bilateral ischial tuberosities. Normal visualized femoral head. Normal acetabulum. Normal hip joint. There is no acute fracture. RAD/HIP, UNI W/ Pelvis 2-3 Views IMPRESSION: Normal x-ray examination of the pelvis and hip. Electronically Signed: Juan Manuel Le MD at 20:12 EDT , Service support ,
--- NOTE | 2018-07-06 19:15 | RAD_ITS ---
STUDY: X-RAY - LEFT FOOT CLINICAL: Female, 52 years old. Pain. TECHNIQUE: 3 view(s) of the foot. COMPARISON: None. FINDINGS: Normal talus, calcaneus, and tarsal bones. Normal visualized subtalar, talonavicular, calcaneocuboid, tarsal and tarsometatarsal articulations. Normal metatarsi. Normal metatarsophalangeal joint of the great toe. Normal tibial and fibular sesamoid bones. Normal interphalangeal joint of the great toe. Normal phalanges of the great toe. Normal second through fifth metatarsophalangeal joints. Normal interphalangeal joints and phalanges of the lesser toes. The soft tissue structures are unremarkable. There is no demonstrated fracture. RAD/Foot min 3 Views IMPRESSION: Normal x-ray examination of the foot. Electronically Signed: Juan Manuel Le MD at 20:13 EDT , Service support ,
[2018-07-06 21:01] VITALS: PULSE 82; RESP 14; O2SAT 99
== END 2018-07-06 21:02 | disposition home or self-care (01) ==
PROVIDERS: Emergency Provider Emergency Medicine; Family Provider Nurse Practitioner Family; PCP Nurse Practitioner Family
DX: S93.602A Unspecified sprain of left foot, initial encounter (principal); M25.552 Pain in left hip; J45.909 Unspecified asthma, uncomplicated; J44.9 Chronic obstructive pulmonary disease, unspecified; E03.9 Hypothyroidism, unspecified; K21.9 Gastro-esophageal reflux disease without esophagitis; Z72.0 Tobacco use; X58.XXXA Exposure to other specified factors, initial encounter; Y93.9 Activity, unspecified; Y92.89 Other specified places as the place of occurrence of the external cause; Y99.9 Unspecified external cause status
CPT/HCPCS: 73502; 73630; 99282

== ENCOUNTER 2018-07-13 09:29 | Day surgery (SDC) | payer MEDICARE, SELFPAY ==
[2018-07-13] VITALS (7 sets, daily range): BP systolic 92–104; BP diastolic 60–75; PULSE 64–69; RESP 18; TEMP 36.3–36.9; O2SAT 97–100; BMI 27.8
--- NOTE | 2018-07-13 11:33 | OP.ENDO_ITS ---
Patient Name: Lyn Mueller Procedure Date: 07/13/2018 11:01 AM Date of : 1965 Age: 53 Procedure: Upper GI endoscopy Indications: Gastro-esophageal reflux disease Providers: Shawn Wilson MD Referring MD: Shawn Wilson MD Medicines: Monitored Anesthesia Care Patient Profile: This is a 53 year old female. Refer to note in patient chart for documentation of history and physical. Complications: No immediate complications. Procedure: Pre-Anesthesia Assessment: - Prior to the procedure, a History and Physical was performed, and patient medications and allergies were reviewed. The patient's tolerance of previous anesthesia was also reviewed. The risks and benefits of the procedure and the sedation options and risks were discussed with the patient. All questions were answered, and informed consent was obtained. Prior Anticoagulants: The patient has taken no previous anticoagulant or antiplatelet agents. After reviewing the risks and benefits, the patient was deemed in satisfactory condition to undergo the procedure. After obtaining informed consent, the endoscope was passed under direct vision. Throughout the procedure, the patient's blood pressure, pulse, and oxygen saturations were monitored continuously. The gastroscope was introduced through the mouth, and advanced to the second part of duodenum. The upper GI endoscopy was accomplished without difficulty. The patient tolerated the procedure well. Scope In: 11:05:36 AM Scope Out: 11:08:22 AM Total Procedure Duration Time 0 hours 2 minutes 46 seconds Findings: The esophagus was normal. The stomach was normal. The examined duodenum was normal. Impression: - Normal esophagus. - Normal stomach. - Normal examined duodenum. - No specimens collected. Recommendation: - Discharge patient to home. - Resume previous diet. - Continue present medications. - Return to primary care physician at appointment to be scheduled. Procedure Code(s): --- Professional --- 34317, Esophagogastroduodenoscopy, flexible, transoral; diagnostic, including collection of specimen(s) by brushing or washing, when performed (separate procedure) Diagnosis Code(s): --- Professional --- K21.9, Gastro-esophageal reflux disease without esophagitis CPT copyright 2017 [employer]. All rights reserved. The codes documented in this report are preliminary and upon state game protector review may be revised to meet current compliance requirements. Shawn Wilson MD 07/13/2018 11:32:58 AM This report has been signed electronically. Number of Addenda: 0 Note Initiated On: 07/13/2018 11:01 AM
--- NOTE | 2018-07-13 11:36 | OP.ENDO_ITS ---
Patient Name: Lyn Mueller Procedure Date: 07/13/2018 11:09 AM Date of : 1965 Age: 53 Procedure: Colonoscopy Indications: Change in bowel habits Providers: Shawn Wislon MD Referring MD: Shawn Wilson MD Medicines: Monitored Anesthesia Care Patient Profile: This is a 53 year old female. Refer to note in patient chart for documentation of history and physical. Last Colonoscopy: none. The patient's first colonoscopy is today. Complications: No immediate complications. Procedure: Pre-Anesthesia Assessment: - Prior to the procedure, a History and Physical was performed, and patient medications and allergies were reviewed. The patient's tolerance of previous anesthesia was also reviewed. The risks and benefits of the procedure and the sedation options and risks were discussed with the patient. All questions were answered, and informed consent was obtained. Prior Anticoagulants: The patient has taken no previous anticoagulant or antiplatelet agents. After reviewing the risks and benefits, the patient was deemed in satisfactory condition to undergo the procedure. After I obtained informed consent, the scope was passed under direct vision. Throughout the procedure, the patient's blood pressure, pulse, and oxygen saturations were monitored continuously. The Colonoscope was introduced through the anus and advanced to the cecum, identified by appendiceal orifice and ileocecal valve. The colonoscopy was performed without difficulty. The quality of the bowel preparation was good. Scope In: 11:10:46 AM Scope Withdrawal Time 0 hours 6 minutes 34 seconds Scope Out: 11:21:12 AM Total Procedure Duration Time 0 hours 10 minutes 26 seconds Findings: The entire examined colon appeared normal on direct and retroflexion views. Impression: - The entire examined colon is normal on direct and retroflexion views. - No specimens collected. Recommendation: - Discharge patient to home. - Resume previous diet. - Continue present medications. - Return to primary care physician at appointment to be scheduled. - Repeat colonoscopy in 10 years for screening purposes. Procedure Code(s): --- Professional --- 28263, Colonoscopy, flexible; diagnostic, including collection of specimen(s) by brushing or washing, when performed (separate procedure) Diagnosis Code(s): --- Professional --- R19.4, Change in bowel habit CPT copyright 2017 [employer]. All rights reserved. The codes documented in this report are preliminary and upon certified procedural coder review may be revised to meet current compliance requirements. Shawn Wilson MD 07/13/2018 11:36:26 AM This report has been signed electronically. Number of Addenda: 0 Note Initiated On: 07/13/2018 11:09 AM
== END 2018-07-13 12:09 | disposition home or self-care (01) ==
LOC: EN 09:31 → AC 09:32
PROVIDERS: Family Provider Nurse Practitioner Family; PCP Nurse Practitioner Family; Referring Provider Surgery; Visit Provider Surgery
PROC: 0DJD8ZZ Inspection of Lower Intestinal Tract, Via Natural or Artificial Opening Endoscopic (ICD-10-PCS; CPT 45378; principal; 2018-07-13 10:40)
DX: K21.9 Gastro-esophageal reflux disease without esophagitis (principal); R19.4 Change in bowel habit; E78.5 Hyperlipidemia, unspecified; M54.9 Dorsalgia, unspecified; G89.29 Other chronic pain; F32.9 Major depressive disorder, single episode, unspecified; J45.909 Unspecified asthma, uncomplicated; Z86.010 Personal history of colon polyps; Z72.0 Tobacco use
CPT/HCPCS: 43235; 45378; J7120

== ENCOUNTER 2018-07-22 17:29 | Emergency (ER) | payer MEDICARE, SELFPAY ==
[2018-07-22 17:30] VITALS: BP 124/78; PULSE 81; RESP 16; TEMP 36.6; O2SAT 97; BMI 29.9
--- NOTE | 2018-07-22 17:40 | RAD_ITS ---
STUDY: X-RAY - RIGHT KNEE REASON FOR EXAM: Female, 53 years old. Pain after a fall TECHNIQUE: 4 view(s) of the knee. COMPARISON: None. FINDINGS: Normal visualized distal femur. Normal visualized proximal tibia and fibula. Normal proximal tibiofibular articulation. Normal medial femorotibial compartment. Normal lateral femorotibial compartment. Normal patellofemoral articulation. Spurs at the insertion of the quadriceps tendon upon the patella. The soft tissue structures are unremarkable. RAD/Knee 4 or More Views IMPRESSION: No demonstrated fracture or suspicious osseous lesion Quadriceps tendon insertion spur Electronically Signed: Ahmet Andrews MD at 18:22 EDT , Service support ,
--- NOTE | 2018-07-22 18:02 | ED.DCSUM_ITS ---
- ER Visit Summary Date of Service: 07/22/18 Chief Complaint: Leg injury History of Present Illness: The patient is a 53 F who states that this afternoon she was walking did not see a large concrete barrier in her way and she fell down on it causing injury to the right knee. She went to work and noted some swelling and her coworkers advised her to seek emergency care. She has been able to ambulate. She is concerned because she takes a daily aspirin. Physical Examination: Afebrile vital signs stable The CT sheet for complete details There is a hematoma on the medial inferior aspect of the knee. Tensor mechanism intact. No joint effusion. No breaks in the skin. Ligaments are stable. Test Results: X-rays of the right knee were negative for fracture Emergency Department Course and Treatment: Patient had ice applied. Will Javan wrap and do conservative treatment at home. Return if worsening or concerns Impression: 1. Right leg hematoma This note was generated with [employer] dictation software. It may contain incorrect words, spelling, and punctuation that were not noted in review of the chart prior to signing ED Disposition - Plan for ED Patient: Disposition: Home or Assisted Living Chief Complaint: Lower Extremity Injury Instructions: ED Hematoma Referrals: Argenis Dill NP-C [Primary Care Provider] - As Needed
[2018-07-22 18:06] VITALS: RESP 18
== END 2018-07-22 18:13 | disposition home or self-care (01) ==
LOC: ED 18:12
PROVIDERS: Emergency Provider Emergency Medicine; Family Provider Nurse Practitioner Family; PCP Nurse Practitioner Family
DX: S80.11XA Contusion of right lower leg, initial encounter (principal); W17.89XA Other fall from one level to another, initial encounter; Y92.89 Other specified places as the place of occurrence of the external cause; Y99.0 Civilian activity done for income or pay; Y93.01 Activity, walking, marching and hiking; K21.9 Gastro-esophageal reflux disease without esophagitis; E78.00 Pure hypercholesterolemia, unspecified; J44.9 Chronic obstructive pulmonary disease, unspecified; Z72.0 Tobacco use
CPT/HCPCS: 73564; 99282

== ENCOUNTER → 2018-08-24 10:44 | Outpatient (CLI) | payer MEDICARE, SELFPAY ==
--- NOTE | 2018-08-24 11:35 | RAD_ITS ---
STUDY: X-RAY CHEST REASON FOR EXAM: Female, 53 years old. Cough and fever, generalized illness. TECHNIQUE: PA and lateral views of the chest. COMPARISON: Comparison is made with prior study dated May 07, 2018. FINDINGS: There is evidence of focal infiltrate in the right middle lobe as well as increased markings in the lingular segment of the left upper lobe. Follow-up is recommended. There is no demonstrated pleural abnormality. Normal size heart. Normal mediastinum and tanya. Normal visualized pulmonary arteries. Normal visualized aortic arch and descending thoracic aorta. There are degenerative changes of the visualized thoracic spine. Fusion is seen in the lower cervical spine. There is no demonstrated abnormality of the visualized soft tissue structures of the upper abdomen. RAD/Chest PA and Lateral IMPRESSION: Right middle lobe infiltrate and increased markings in the lingular segment of the left upper lobe. Follow-up is recommended. Electronically Signed: Iglesia Mendez MD at 12:37 EST Tel [phone], Service support ,
== END ==
PROVIDERS: Family Provider Nurse Practitioner Family; PCP Nurse Practitioner Family; Referring Provider Nurse Practitioner Family; Visit Provider Nurse Practitioner Family
DX: R05 Cough (principal)
CPT/HCPCS: 71046

== ENCOUNTER → 2018-09-06 13:59 | Outpatient (CLI) | payer MEDICARE, SELFPAY ==
--- NOTE | 2018-09-06 14:04 | RAD_ITS ---
STUDY: X-RAY CHEST REASON FOR EXAM: Female, 53 years old. Right-sided pneumonia TECHNIQUE: Frontal and lateral views of the chest. COMPARISON: 08/24/2018 FINDINGS: Cervical spine fusion. The lungs are clear and expanded. There is no demonstrated pleural abnormality. Normal size heart. Normal mediastinum and tanya. Normal visualized pulmonary arteries. Normal visualized aortic arch and descending thoracic aorta. Normal visualized thoracic spine. Normal visualized ribs, clavicles, and shoulders. There is no demonstrated abnormality of the visualized soft tissue structures of the upper abdomen. RAD/Chest PA and Lateral IMPRESSION: No acute pulmonary findings. Electronically Signed: Kris Henderson MD at 14:46 EST Tel , Service support ,
--- NOTE | 2018-09-06 14:06 | RAD_ITS ---
STUDY: X-RAY - CERVICAL SPINE REASON FOR EXAM: Female, 53 years old. Bilateral arm numbness TECHNIQUE: 8 view(s) of the cervical spine were obtained. COMPARISON: None FINDINGS: Anterior fusions of C5 and C6. Degenerative disc disease at C4-5 and C6-7. Normal alignment. Foramina are patent. Base of dens is intact. Prevertebral soft tissues are normal. No abnormal motion between flexion and extension. RAD/Cerv Spine Obl/Flex/Ext Comp IMPRESSION: Foramina are patent. Degenerative changes as described. Electronically Signed: Kris Henderson MD at 14:38 EST Tel , Service support ,
--- OUTSIDE RECORDS SUMMARY | 2018-12-09 05:55 | XMS RPT_ITS ---
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 rhythm, no murmurs Respiratory: Normal breath sounds, symmetric, no distress Abdomen: Soft, nontender, nondistended Extremities: Left lower extremity: No shortening or rotated. Negative logroll. Knee extensor is intact. Ankle without tenderness. Foot examination midfoot along with proximal fifth base tenderness. Skin intact. No deformities. Neurovascular intact distally. Neuro: no focal neurological deficits. Test Results: Left hip x-ray and left foot x-ray: No fracture or dislocation Emergency Department Course and Treatment: Patient denies any trauma. Pain hip and foot x-rays obtained negative. With foot pain midfoot and proximal fifth base concerns of more sprain. Javan wrap provided. Rice therapy. Hip x-ray negative for fracture. She is ambulating. She denies any crutches. Continue her Aleve and aspirin at home. She will have an upcoming orthopedic evaluation. Treatment Plan: [] Disposition: Discharge Impression: 1. Left foot sprain 2. Left hip pain This note was generated with [employer] Ex[employer] Displayation software. It may contain incorrect words, spelling, and punctuation that were not noted in review of the chart prior to signing ED Disposition - Plan for ED Patient: Disposition: Home or Assisted Living Chief Complaint: Lower Extremity Injury Diagnosis: Sprain of left foot, Left hip pain Instructions: ED Contusion Hip, ED Sprain Foot Referrals: Argenis Dill, DRIER OPERATOR HEAD-C [Primary Care Provider] - 5-7 Days What to do if you have Problems For any increased pain, shortness of breath, bleeding, nausea or vomiting, chest pain, or any unexpected problems, contact your Primary Care Provider. Call [facility] ([phone]) or report to the closest Emergency Room. Call 911 if necessary. 07/06/182054 <Electronically signed by Chay Jones> Date Chay Jones Cosigner Signature (If Indicated): Date CC: Argenis BENITEZ HIP, UNI W/ PELVIS Observed: 07/06/2018 Status: F Source: [place] 2-3 VIEWS 7:03 PM [facility] REPOS[facility] Imaging Services [address] [place] [address] HIP, UNI W/ Pelvis 2-3 Views MR#: [id number] Acct: [id number] Name: LYN MOMIN Rep #: [id number] : 1965 F 52 From: Juan Manuel Le MD PCP: Argenis Feng Status: REG ER Study: HIP, UNI W/ Pelvis 2-3 Views Date of Exam: 07/06/18 Exam# [id number] Ordering Dr: Chay Rao DO STUDY: X-RAY - PELVIS AND LEFT HIP REASON FOR EXAM: Female, 52 years old. Left hip pain TECHNIQUE: Radiological exam, hip, unilateral, with pelvis when performed; 2 or 3 views. COMPARISON: None. FINDINGS: There is a normal bowel gas pattern. Normal visualized soft tissue structures. Normal bilateral iliac wings, sacroiliac joints and visualized sacrum. Normal bilateral superior and inferior pubic rami. Normal pubic symphysis. Normal bilateral ischial tuberosities. Normal visualized femoral head. Normal acetabulum. Normal hip joint. There is no acute fracture. RAD/HIP, UNI W/ Pelvis 2-3 Views IMPRESSION: Normal x-ray examination of the pelvis and hip. Electronically Signed: Juan Manuel Le MD at 20:12 EDT , Service support , CC: Argenis BENITEZ; Chay Rao Senior Quality Assurance Engineer: Signed FOOT MIN 3 VIEWS Observed: 07/06/2018 Status: F Source: [place] 7:03 PM [facility] Imaging Services [address] [place] [address] Foot min 3 Views MR#: [id number] Acct: [id number] Name: LYN MOMIN Rep #: [id number] : 1965 F 52 From: Juan Manuel Le MD PCP: Argenis Feng Status: REG ER Study: Foot min 3 Views Date of Exam: 07/06/18 Exam# [id number] Ordering Dr: Chay Rao DO STUDY: X-RAY - LEFT FOOT CLINICAL: Female, 52 years old. Pain. TECHNIQUE: 3 view(s) of the foot. COMPARISON: None. FINDINGS: Normal talus, calcaneus, and tarsal bones. Normal visualized subtalar, talonavicular, calcaneocuboid, tarsal and tarsometatarsal articulations. Normal metatarsi. Normal metatarsophalangeal joint of the great toe. Normal tibial and fibular sesamoid bones. Normal interphalangeal joint of the great toe. Normal phalanges of the great toe. Normal second through fifth metatarsophalangeal joints. Normal interphalangeal joints and phalanges of the lesser toes. The soft tissue structures are unremarkable. There is no demonstrated fracture. RAD/Foot min 3 Views IMPRESSION: Normal x-ray examination of the foot. Electronically Signed: Juan Manuel Le MD at 20:13 EDT , Service support , CC: Argenis BENITEZ; Chay Rao Senior Quality Assurance Engineer: Signed SURGERY VISIT REPORT Observed: 07/05/2018 Status: F Source: [place] 9:[address] 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 Required: No Is patient in pain?: No Allergies acetaminophen [From Percocet] Allergy (Verified 07/05/18 08:56) Hives famotidine [From Pepcid] Allergy (Verified 07/05/18 08:56) Other icosapent ethyl [From Vascepa] Allergy (Verified 07/05/18 08:56) Other lamotrigine [From Lamictal] Allergy (Verified 07/05/18 08:56) Shortness of breath latex Allergy (Verified 07/05/18 08:56) Hives oxycodone [From Percocet] Allergy (Verified 07/05/18 08:56) Hives Penicillins Allergy (Verified 07/05/18 08:56) Hives pravastatin [From Pravachol] Allergy (Verified 07/05/18 08:56) Hives topiramate Allergy (Verified 07/05/18 08:56) Other ziprasidone HCl [From Geodon] Allergy (Verified 07/05/18 08:56) Shortness of breath ziprasidone mesylate [From Geodon] Allergy (Verified 07/05/18 08:56) Shortness of breath Medications Albuterol Inhaler [Ventolin Hfa] 2 puff INHALATION Q4H PRN PRN 04/06/14 [History Confirmed 07/05/18] Fluticasone/Salmeterol [Advair 500/50 Mcg Diskus] 1 puff INHALATION DAILY 04/06/14 [History Confirmed 07/05/18] Loratadine [Claritin] 10 mg PO DAILY 04/06/14 [History Confirmed 07/05/18] Cyclobenzaprine [Flexeril] 5 mg PO BID PRN PRN 11/11/17 [History Confirmed 07/05/18] Sertraline HCl [Zoloft] 100 mg PO QHS 11/11/17 [History Confirmed 07/05/18] traZODone [Desyrel] 1 - 2 tab PO QHS PRN 11/11/17 [History Confirmed 07/05/18] Aspirin [Aspirin EC] 325 mg PO DAILY 05/07/18 [History Confirmed 07/05/18] Bacillus Coagulans [Probiotic] 1 ea PO DAILY 05/07/18 [History Confirmed 07/05/18] Ergocalciferol [Vitamin D] 50,000 units PO QWEEK 05/07/18 [History Confirmed 07/05/18] Gemfibrozil [Lopid] 600 mg PO BID 05/07/18 [History Confirmed 07/05/18] Levothyroxine [Synthroid] 75 mcg PO DAILY 05/07/18 [History Confirmed 07/05/18] Metronidazole 500 mg PO BID 05/07/18 [History Confirmed 07/05/18] Multivitamin [Multiple Vitamins] 1 ea PO DAILY 05/07/18 [History Confirmed 07/05/18] Nicotine [Nicoderm Cq] 7 mg TRANSDERM. DAILY PRN #14 patch 05/07/18 [Rx Confirmed 07/05/18] Pantoprazole Sodium [Protonix] 40 mg PO DAILY 05/07/18 [History Confirmed 07/05/18] Rosuvastatin Calcium [Crestor] 10 mg PO DAILY 05/07/18 [History Confirmed 07/05/18] [facility] Medical History Chest discomfort (Acute) COPD (chronic obstructive pulmonary disease) (Suspected) HLD (hyperlipidemia) (Chronic) Chronic low back pain (Chronic) Hypothyroidism (Chronic) Gastroesophageal reflux disease (Chronic) Depression (Chronic) Asthma (Chronic) Surgical History Status post lumbar spinal fusion (Chronic) History of fusion of cervical spine (Acute) History of laparoscopic appendectomy (Acute) History of laparoscopic cholecystectomy (Acute) History of left heart catheterization (Acute) history TMJ surgery (Acute) history left shoulder surgery (Acute) history of hardware removal lumbar region (Acute) Family History Mother Hypertension Cancer Father Hypertension Heart disease Cancer Diabetes Sister Diabetes Social History Smoking Status: Current every day smoker alcohol intake: never substance use type: does not use HPI HPI HPI: LYN MOMIN, is a 52 F who presents to the office today for EGD and colonoscopy. The patient reports that she had a colonoscopy in 2010. She said that she had multiple polyps and was recommended to have a repeat colonoscopy in 5 years. She says she is having diarrhea and constipation which are alternating. She is not having any blood in her stool. She is not having any abdominal pain normally. She does have some bloating and nausea after eating in her epigastric region. The patient reports she has had long-standing GERD since 1995. ROS General General: Yes weight change and fatigue; no appetite, colon cancer, breast cancer or weakness HEENT HEENT: No difficulty swallowing, eye injury, eye surgery, swollen glands or hoarseness Endo Endocrine: No thyroid disease, diabetes mellitus, thyroid cancer, Hair loss, heat intolerance or cold intolerance Skin Skin: No rash or changing moles Breast Breast: No left breast lump, right breast lump, nipple discharge, breast pain, abnormal mammogram, abnormal US or breast enlargement Musc Musculoskeletal: Yes back problems and arthritis; no rheumatoid arthritis, gout or joint pain Cardio Cardiovascular: No murmur, pacemaker, heart disease, atrial fibrillation, high blood pressure, heart attack, heart stent, palpitations, shortness of breat with exertion or chest pain Psych Psychiatric: Yes depression and anxiety; no hearing voices Resp Respiratory: No shortness of breath, No sleep apnea, No cough, No COPD, Yes asthma, No emphysema, No wheezing Gastro Gastrointestinal: Yes abdominal pain, Yes nausea or vomiting, Yes diarrhea, Yes constipation, No blood in stool, Yes acid reflux, No hemorrhoids, No ulcers, No gallbladder problem, No black,tarry stools Nakul Hematologic: No blood thinners, No blood disorders, No bleeding, No anemia, No blood clots Neuro Neurologic: No system reviewed and no additional complaints, except as docu, No as per HPI, No abnormal walking, No abnormal hearing, No abnormal movements, No abnormal speech, No behavioral changes, No burning sensations, No confusion, No seizure-like activity, No unsteadiness, No dizziness, No localized weakness, No frequent falls, No headache(s), No lack of coordination, No loss of vision, No memory loss, Yes numbness, No other visual disturbances, No radiating pain, No restless legs, No sensory deficit, No fainting, Yes tingling, No tremor(s), No weakness, No other Exam Const General: cooperative Orientation: alert, oriented x3 Chest Breast Palpation: No nipple discharge Resp Effort AND Inspection: normal respiratory effort Auscultation: clear to auscultation bilaterally Cardio Rate: regular rate Rhythm: regular rhythm Heart Sounds: no murmurs GI Inspection: non-distended Palpation: soft, nontender Assessment AND Plan 1. Gastroesophageal reflux disease, esophagitis presence not specified K21.9 Plan 1. Patient has chronic GERD. She is on medication for this but she still has GERD and vomiting with greasy foods. Due to the chronic nature of her GERD I would recommend surveillance EGD to ensure there is no malignancy or Everett's esophagus. 2. I explained endoscopy in detail to the patient. I explained the risks including but not limited to stroke or heart attack with anesthesia, perforation of the GI tract, bleeding, infection. I explained that any of these could necessitate further emergency surgery. The patient understands and all questions were answered sufficiently. The patient wishes to proceed with procedure. Orders Orders: 2. History of colon polyps Z86.010 Plan 1. Patient has a personal history of colon polyps. She had her last colonoscopy in 2010 and was recommended to repeat in 5 years. She does not remember where this was done so I am unable to obtain records. 2. I have asked her to hold her aspirin for 5 days prior to procedure. Orders Orders: 3. Tobacco abuse Z72.0 Plan 1. Patient advised to quit using tobacco. Shawn Wilson MD Pager: [facility] [address] [place] [address], [address] [place] [address] Office: Coding Level of Care Code Off vis,new,level 2 Diagnoses Gastroesophageal reflux disease, esophagitis presence not specified K21.9 Esophagitis presence: esophagitis presence not specified History of colon polyps Z86.010 Tobacco abuse Z72.0 07/05/18 0903 <Electronically signed by Shawn Wilson MD> Date Shawn Wilson MD Cosign Signature: Date (if applicable) CC: Argenis BENITEZ DISCHARGE INSTRUCTION Observed: 06/27/2018 Status: F Source: [place] 5:17 PM [facility] Medical Records Department [address] [place] [address] Discharge Instruction 06/27/18 1716 MR#: [id number] Acct: [id number] Name: LYN MOMIN Cezar Rep #: [id number] : 1965 52 From: Gillian Ivory MD PCP: Argenis Feng Status: PRE ER ED Disposition - Plan for ED Patient: Chief Complaint: Head Injury Instructions: ED Contusion Nasal Vs Fx No X Ray Referrals: Argenis Dill, DRIER OPERATOR HEAD-C [Primary Care Provider] - Rios Jackson MD [STAFF PHYSICIAN] - What to do if you have Problems For any increased pain, shortness of breath, bleeding, nausea or vomiting, chest pain, or any unexpected problems, contact your Primary Care Provider. Call [facility] ([phone]) or report to the closest Emergency Room. Call 911 if necessary. 06/27/181716 <Electronically signed by Gillian Ivory MD> Date Gillian Ivory MD Cosigner Signature (If Indicated): Date CC: Argenis BENITEZ EMERGENCY DEPARTMENT Observed: 06/27/2018 Status: F Source: [place] SUMMARY 5:16 PM [facility] Medical Records Department [address] [place] [address] Emergency Department Summary 06/27/181711 MR#: [id number] Acct: [id number] Name: LYN MOMIN Rep #: [id number] : 1965 52 From: Gillian Ivory MD PCP: Argenis Feng Status: PRE ER - ER Visit Summary Date of Service: 06/27/18 Chief Complaint: Nose injury History of Present Illness: The patient is a 52 F presenting with injury to her nose. She was hit in the nose with her washing machine lid just prior to arrival. Her nose did not bleed. She did not lose consciousness. She has had no vomiting. Denies other complaints. She did not take medication prior to arrival. Physical Examination: Vitals are stable. Patient is afebrile. Alert no acute distress. HEENT exam mild superficial abrasion to the nose. No septal hematoma. Tenderness to the nasal bridge, mild swelling. Neck is nontender Lungs are clear and equal bilaterally. Heart is regular rate and rhythm. Extremities are unremarkable. Skin is warm and dry. No focal neurologic deficit. Remainder of exam is unremarkable. Emergency Department Course and Treatment: Patient already has a scheduled appointment with ENT on Thursday. She declines x-rays at this time. She is advised to ice and use NSAIDs for pain. Advised to follow-up with ENT. Advised return to ED if worsening complaints. Disposition: Discharge home Impression: Nose injury This note was generated with [employer] dictation software. It may contain incorrect words, spelling, and punctuation that were not noted in review of the chart prior to signing ED Disposition - Plan for ED Patient: Chief Complaint: Head Injury Referrals: Argenis Dill, DRIER OPERATOR HEAD-C [Primary Care Provider] - What to do if you have Problems For any increased pain, shortness of breath, bleeding, nausea or vomiting, chest pain, or any unexpected problems, contact your Primary Care Provider. Call [facility] ([phone]) or report to the closest Emergency Room. Call 911 if necessary. 06/27/18 1716 <Electronically signed by Gillian Ivory MD> Date Gillian Ivory MD Cosigner Signature (If Indicated): Date CC: Argenis BENITEZ ECHOCARDIOGRAM COMPLETE Observed: 06/15/2018 Status: F Source: [place] 2:57 PM [facility] Cardiovascular Services [address] [place] [address] Echo Complete 06/15/18 1248 MR#: [id number] Acct: [id number] Name: LYN MOMIN Rep #: [id number] : 1965 52 From: Cristian Kathleen MD Attending Dr: Deondre Polo MD Status: REG CLI Ordering Dr: Deondre Polo MD Date: 06/15/18 Location: [facility] Sex: F C Admitted: Reason For Study: TIA Procedure This was a 2D Doppler, Color Flow transthoracic echocardiogram. The exam was of fair technical quality due to diminished acoustic windows. Exam performed in department. Left Ventricle Normal LV size. Left ventricular systolic function is normal. The estimated ejection fraction is 60 %. Diastolic function is indeterminate. No regional wall motion abnormalities noted. Right Ventricle Normal RV size. Normal systolic function. Atria Normal left atrium. Normal right atrium. No doppler evidence for ASD. Bubble contrast study negative for right to left interatrial shunt. Mitral Valve There is no mitral annular calcification. Normal mitral valve. Trivial mitral valve insufficiency. Tricuspid Valve Normal tricuspid valve. Trivial tricuspid valve insufficiency. Right ventricular systolic pressure estimated to be 21 mmHg. Aortic Valve Trisinus/trileaflet aortic valve. Normal aortic valve. Pulmonic Valve The pulmonic valve is not well visualized. Great Vessels Normal sized aortic root. Pericardium/Pleural No pericardial effusion. Medication 22 gauge I.V. with prn adaptor inserted into right arm. Performed a rapid injection of agitated mix of 9 cc saline and 1cc air to assess for atrial septal defect. MMode/2D Measurements AND Calculations LVIDd: 4.3 cm IVSd: 0.79 cm Ao root diam: 3.1 cm LVIDs: 3.0 cm LVPWd: 0.86 cm LA dimension: 3.6 cm RVDd: 3.0 cm FS: 30.5 % LAV(MOD-bp): 48.4 ml LVAd ap4: 24.7 cm2 SV(MOD-sp4): 41.6 ml LAV(MOD-bp) Indexed: 28.6 ml/m2 EDV(MOD-sp4): 70.7 ml LAV(MOD-sp2): 53.2 ml EDV(sp4-el): 72.1 ml LAV(MOD-sp4): 43.1 ml LVAs ap4: 14.0 cm2 ESV(MOD-sp4): 29.1 ml ESV(sp4-el): 28.6 ml EF(MOD-sp4): 58.8 % EF(sp4-el): 60.3 % SV(sp4-el): 43.5 ml LA A4 area: 16.9 cm2 RA A4 area: 15.4 cm2 Time Measurements MV dec time: 0.26 sec Doppler Measurements AND Calculations MV E max sathish: 89.7 cm/sec Lat Peak E' Sathish: 7.6 cm/sec Med Peak E' Sathish: 7.6 cm/sec MV A max sathish: 76.4 cm/sec E/E' lat: 11.9 E/E' med: 11.8 MV E/A: 1.2 Ao V2 max: 126.0 cm/sec LV V1 max: 89.9 cm/sec PA V2 max: 73.0 cm/sec Ao max P.4 mmHg LV V1 max P.2 mmHg TR max sathish: 206.9 cm/sec TR max P.6 mmHg Interpretation Summary Left ventricular systolic function is normal. The estimated ejection fraction is 60 %. Trivial mitral valve insufficiency. Trivial tricuspid valve insufficiency. Right ventricular systolic pressure estimated to be 21 mmHg. Diastolic function is indeterminate. Ordering Physician: Deondre Polo Referring Physician: Deondre Polo Performed By: Chayo Rey, RDCS, RVT 06/15/18 1456 Date Cristian Kathleen MD CC: Deondre Polo MD; Argenis BENITEZ Date Dictated: 06/15/18 1248 Date Transcribed: 06/15/18 145 Senior Quality Assurance Engineer: Signed Observed: 06/04/2018 Status: F Source: [place] CULTURE, THROAT 9:15 AM [facility] RE[facility] Culture, Throat No Haemophilus, Streptococcus pneumoniae, beta-hemolytic Streptococcus or Staphylococcus aureus isolated. ORGANISM 1: Presumptive C albicans Amount Growth 1+ ORGANISM 2: Mixed Lynn Amount Growth 3+ Performed By: #### M100.1000 #### [facility] [address] [facility] [place], [address] SCREENING MAMM (CAD), Observed: 05/21/2018 Status: F Source: [place] BILAT 7:34 AM [facility] Imaging Services [address] [place] [address] SCREENING MAMM (CAD), BILAT MR#: [id number] Acct: [id number] Name: LYN MOMIN Rep #: [id number] : 1965 F 52 From: Iglesia Mendez MD PCP: Argenis Feng Status: REG CLI Study: SCREENING MAMM (CAD), BILAT Date of Exam: 05/21/18 Exam# [id number] Ordering Dr: Eliu Alvarado MAMMOGRAPHY - BILATERAL SCREENING REASON FOR EXAM: Female, 52 years old. Routine annual screening examination. PERTINENT HISTORY: Aunt with breast cancer. Remote excisional breast biopsy. TECHNIQUE: Digital bilateral breast wilfredo (3D mammographic acquisition) in the CC and MLO projections. 2-D mediolateral oblique (MLO) and craniocaudad (CC) views of both breasts were obtained. CAD: Full Field Digital Mammography with Computer Added Detection was performed. COMPARISON: Comparison is made with prior examination dated February 06, 2017 and January 26, [id number]. FINDINGS: Breast Composition: There are scattered areas of fibroglandular density. There are no dominant masses or suspicious calcifications. No other significant abnormalities are identified. There has been no significant change since the prior study. BI/SCREENING MAMM (CAD), BILAT IMPRESSION: Stable bilateral screening mammogram. Yearly follow-up mammogram recommended. (A) ASSESSMENT CATEGORY: BIRADS Category 1: Negative. A letter regarding these results will be sent to the patient by the facility within 30 days. Approximately 10% of breast cancers are not detected by mammography. A normal mammogram should not delay biopsy of a clinically suspicious abnormality. [id number] Electronically Signed: Iglesia Mendez MD at 9:05 EDT Tel [phone], Service support , CC: Argenis BENITEZ; ELIU MOHAN [facility] Senior Quality Assurance Engineer: Signed 12 LEAD ELECTROCARDIOGRAM Observed: 05/11/2018 Status: F Source: [place] 3:09 PM [facility] Cardiovascular Services [address] [place] [address] 12 Lead EKG 05/07/18 1131 MR#: [id number] Acct: [id number] Name: LYN MOMIN Rep #: [id number] : 1965 52 From: Viktor Rocha MD Attending Dr: Kailey Weller Status: DIS ENMANUEL Ordering Dr: Kailey Weller Date: 05/07/18 Location: [facility] Sex: F C Admitted: 05/07/18 Test Reason : Blood Pressure : / mmHG Vent. Rate : 065 BPM Atrial Rate : 065 BPM P-R Int : 140 ms QRS Dur : 090 ms QT Int : 456 ms P-R-T Axes : 060 065 027 degrees QTc Int : 474 ms Normal sinus rhythm Normal ECG When compared with ECG of 07-MAY-2018 08:34, MANUAL COMPARISON REQUIRED, DATA IS UNCONFIRMED Confirmed by VIKTOR ROCHA MD ([id number]), editor map ALEX LOO ([id number]) on 05/11/2018 3:08:54 PM Referred By: Eloy Weir Confirmed By:VIKTOR ROCHA MD 05/11/18 1509 Date Viktor Rocha MD CC: Kailey Weller; Eloy Weir MD; Argenis BENITEZ Signed 12 LEAD ELECTROCARDIOGRAM Observed: 05/11/2018 Status: F Source: [place] 2:09 PM [facility] REPOSITORY [facility] Cardiovascular Services [address] [place] [id number] 12 Lead EKG 05/07/18 0834 MR#: [id number] Acct: [id number] Name: LYN MOMIN Rep #: [id number] : 1965 52 From: Viktor Rocha MD Attending Dr: Kailey Weller Status: DIS ENMANUEL Ordering Dr: Eloy Weir MD Date: 05/07/18 Location: [facility] Sex: F C Admitted: 05/07/18 Test Reason : CP Blood Pressure : / mmHG Vent. Rate : 085 BPM Atrial Rate : 085 BPM P-R Int : 132 ms QRS Dur : 086 ms QT Int : 368 ms P-R-T Axes : 073 080 037 degrees QTc Int : 437 ms Normal sinus rhythm Biatrial enlargement Nonspecific ST abnormality Abnormal ECG Confirmed by VIKTOR ROCHA MD ([id number]), editor map ALEX LOO ([id number]) on 05/11/2018 2:08:29 PM Referred By: Eloy Weir Confirmed By:VIKTOR ROCHA MD 05/11/18 9835 Date Viktor Rocha MD CC: Kailey Weller; Eloy Weir MD; Argenis BENITEZ Signed EMERGENCY DEPARTMENT Observed: 05/07/2018 Status: F Source: [place] SUMMARY 4:35 PM [facility] REPOSITORY [facility] Medical Records Department [address] [place] [address] Emergency Department Summary 05/07/18 0856 MR#: [id number] Acct: [id number] Name: LYN MOMIN Rep #: [id number] : 1965 52 From: Eloy Weir MD PCP: Argenis Feng Status: ADM ENMANUEL - ER Visit Summary Date of Service: 05/07/18 Chief Complaint: Chest pain History of Present Illness: The patient is a 52 F past medical history of high cholesterol and hypothyroidism. Patient has no known history of cardiac disease and states she had a negative stress test years ago but nothing done recently. She is complaining of intermittent chest pressure and heaviness over the last several weeks or longer. At times it is exertional. At times she does have shortness of breath and nausea. The last couple days she has had episodes of diaphoresis associated with it with pain radiating to her right arm and neck. She denies any pleuritic pain. No history of DVT or PE. No hemoptysis. No leg pain or swelling. She is a smoker and has smoked for years. She denies any melena. Physical Examination: Well-appearing middle-age female. Vital signs are stable afebrile. Pulse ox 97% on room air no hypoxia. H EENT exam unremarkable. Neck nontender no JVD. Lungs clear to auscultation bilaterally. Heart regular rate and rhythm no murmur. Chest wall has mild soreness. Abdomen is soft and nontender. Normal bowel sounds. No peritoneal signs. She is moving all 4 extremities. They are equal symmetrical. Calves are nontender. No edema or cords. Radial pulses are equal and symmetrical. Back nontender. Neurologic exam no focal motor deficits. Awake alert following commands. Test Results: Portable chest x-ray 1 view no acute abnormality read both by myself the radiologist. CBC normal. BMP unremarkable. Troponin normal. EKG sinus rhythm rate 85. There is ST segment flattening in 2 3 and aVF and also V4 5 and 6. There is no old EKG available for comparison. There is no NJ. Emergency Department Course and Treatment: Patient will receive p.o. aspirin. She will undergo a cardiac workup. Given she is 52, has a sister with a recent stent, a smoker and has a pretty good story for exertional shortness of breath and chest pain I will recommend admission. Treatment Plan: Repeat exam the patient is doing well on his results and she is comfortable being admitted and having further workup. I very spoken to the hospitalist Dr. Kailey Weller. And I am going to speak to 1 of the lab animal technologist. Disposition: Admission Impression: Acute chest pain with exertional dyspnea Tobacco abuse This note was generated with [employer] dictation software. It may contain incorrect words, spelling, and punctuation that were not noted in review of the chart prior to signing ED Disposition - Plan for ED Patient: Chief Complaint: Chest Pain Referrals: Argenis Dill, DRIER OPERATOR HEAD-C [Primary Care Provider] - What to do if you have Problems For any increased pain, shortness of breath, bleeding, nausea or vomiting, chest pain, or any unexpected problems, contact your Primary Care Provider. Call [facility] ([phone]) or report to the closest Emergency Room. Call 911 if necessary. 05/07/18 6746 <Electronically signed by Eloy Weir MD> Date Eloy Weir MD Cosigner Signature (If Indicated): Date CC: Argenis BENITEZ CONSULTATION Observed: 05/07/2018 Status: F Source: [place] 4:30 PM [facility] REPOSITORY [facility] Medical Records Department [address] [place] [address] Consultation 05/07/18 1320 MR#: [id number] Acct: [id number] Name: LYN MOMIN Rep #: [id number] : 1965 52 From: Viktor Rocha MD PCP: Argenis Feng Status: ADM ENMANUEL Y Location: [place] [address] Reason for Consult Date of Consultation: 05/07/18 Reason for Consultation: Chest pain. History of Present Illness: The patient is a 52 year old F no previous cardiac history but a strong family history of coronary artery disease who presents to the emergency room complaining of chest discomfort which she says has been intermittent over the last few weeks. She had an episode yesterday as well as today described as a heaviness radiating to the right side of her jaw. There was no diaphoresis no nausea no dizziness or vomiting. Due to the concerns of the above as well as the increasing frequency she presented to the emergency room where she was evaluated. Her EKG did not demonstrate any significant abnormalities at this time. Initial troponins were negative she was admitted to the telemetry unit cardiology was consulted from the emergency room. [] Past Medical History Allergies/Adverse Reactions: Allergies acetaminophen [From Percocet] Allergy (Verified 05/07/18 08:38) Hives famotidine [From Pepcid] Allergy (Verified 05/07/18 08:38) Other icosapent ethyl [From Vascepa] Allergy (Verified 05/07/18 08:38) Other lamotrigine [From Lamictal] Allergy (Verified 05/07/18 08:38) Shortness of breath latex Allergy (Verified 05/07/18 08:38) Hives oxycodone [From Percocet] Allergy (Verified 05/07/18 08:38) Hives Penicillins Allergy (Verified 05/07/18 08:38) Hives pravastatin [From Pravachol] Allergy (Verified 05/07/18 08:38) Hives topiramate Allergy (Verified 05/07/18 08:38) Other ziprasidone HCl [From Geodon] Allergy (Verified 05/07/18 08:38) Shortness of breath ziprasidone mesylate [From Geodon] Allergy (Verified 05/07/18 08:38) Shortness of breath Home Medications: Ambulatory Orders Medication Instructions Recorded Albuterol Inhaler [Ventolin Hfa] 2 puff INHALATION Q4H PRN PRN 04/06/14 Past Medical History (Chronic Problems): Chronic Problems Status post lumbar spinal fusion (Chronic) Chronic low back pain (Chronic) Hypothyroidism (Chronic) Gastroesophageal reflux disease (Chronic) Depression (Chronic) Asthma (Chronic) Surgical History: spinal fusion Smoking Status: Current every day smoker Alcohol: Occasional Drugs: Cocaine, Marijuana Review of Systems - Review of Systems General: Denies: Fever, Night Sweats, Fatigue Cardiovascular: Reports: Chest Discomfort at Rest, Chest Discomfort with Exertion. Denies: Chest Discomfort, Shortness of Breath, Orthopnea, PND, Peripheral Edema, Palpitations, Lightheadedness, Dizziness, Near Syncope, Syncope Respiratory: Denies: Cough, Sputum Production, Hemoptysis Gastrointestinal: Denies: Hematemesis, Hematochezia, Melena Genitourinary: Denies: Dysuria, Hematuria Skin: Denies: Rash Subjectve: Pleasant lady in no apparent distress Objective: Vital Signs Temp Pulse Resp BP Pulse Ox 97.9 F 65 16 110/69 98 05/07/18 10:40 05/07/18 11:00 05/07/18 10:40 05/07/18 10:41 05/07/18 10:40 Oxygen Flow Rate (L/min) 2 Oxygen Delivery Method Room Air Weight: 154 lb 8.705 oz Body Mass Index (BMI) 29.2 General: Awake, Alert, Oriented x 3 HEENT: PERRL, EOMI, Sclera Non Icteric Neck: Supple, Good ROM, No Lymph Node Enlargement Lungs: Clear to auscultation Cardiovascular: Regular Rhythm, Normal S1, Normal S2, No Murmurs, No Rubs, No Gallops Vascular: No Carotid Bruits, Normal Femoral Pulses, Normal Radial Pulses, Normal Dorsalis Pedal Pulse, Normal Posterior Tibial Pulses Abdomen: Bowel Sounds Present, Soft, Non Tender, No HSM, No Organomegaly Extremities: No Cyanosis, No Clubbing, No edema Neurological: No Focal Motor or Sensory Deficit 05/07/18 12:00: Troponin I < 0.015 Rhythm: EKG: Normal sinus rhythm with no acute changes rate of 65 bpm is noted. Assessment/Plan 1. Chest pain. Patient presents with chest pain which appears to be concerning for angina. She has had worsening of the discomfort over the last few weeks as well as a strong family history of coronary disease as well as drug use. Due to the above constellation of findings it was felt that the prudent approach would be to evaluate her coronary anatomy to definitively exclude coronary artery disease. This was discussed with the patient and her family as well as the hospitalist. All in agreement. The above will be performed later today and further recommendations made. 2. Hyperlipidemia Will institute aggressive risk factor modification with statin. 3. Tobacco use Patient has been significantly counseled regarding the above. Thank you for allowing me to participate in the care of your patient. Please don't hesitate to call if any issues arise 05/07/18 1630 <Electronically signed by Viktor Rocha MD> Date Viktor Rocha MD Cosigner Signature (if applicable): Date CC: Eloy Weir MD; Argenis BENITEZ Signed DISCHARGE SUMMARY Observed: 05/07/2018 Status: F Source: [place] 3:26 PM [facility] REPOSITORY [facility] Medical Records Department [address] [place] [address] Discharge Summary 05/07/18 1523 MR#: [id number] Acct: [id number] Name: LYN MOMIN Rep #: [id number] : 1965 52 From: Kailey Weller PCP: Argenis Feng Status: ADM ENMANUEL Y Location: [place] [address] Discharge Date and Diagnosis - Problem List Patient Problems: Active and Suspected Problems Chest discomfort (Acute) COPD (chronic obstructive pulmonary disease) (Suspected) Date of Admission: 05/07/18 Date of Discharge: 05/07/18 - Primary Discharge Diagnosis Active and Suspected Problems (1) Chest Pain w/ concern for ACS, RULED OUT, unremarkable cardiac catheterization, Unclear Specific Etiology, Possible Atypical Complex Migraine, RESOLVED (2) Asthma/Suspected Chronic COPD (3) Hyperlipidemia (4) Hypothyroidism, TSH and FT4 normal. (5) Tobacco Abuse (6) Anxiety and depression (7) Thrombocytopenia, mild, unclear baseline. (8) GERD (9) Former polysubstance abuse, alcohol abuse history (10) Migraine Headaches (11) Recent Bacterial Vaginosis - Secondary Discharge Diagnosis Chronic Problems HLD (hyperlipidemia) (Chronic) Status post lumbar spinal fusion (Chronic) Chronic low back pain (Chronic) Hypothyroidism (Chronic) Gastroesophageal reflux disease (Chronic) Depression (Chronic) Asthma (Chronic) Hospital Course and Treatment Dr. Rocha Cardiology Operations: None Procedures: Cardiac catheterization, EKG Summary of Care Provided: The patient is a 52 y/o F w/ PMHx: Tobacco use (09/24 ppd), HLD, Hypothyroidism, COPD, Anxiety and Depression, GERD, Chronic COPD, Overweight, Former Polysubstance abuse and EtOH abuse (Clean and sober x 9 years) who presented to the [facility] ED on 05/07/18 with history of ongoing intermittent chest discomfort described as pressure and tightness across the chest, occurring with both exertion and at rest, with onset initially this past Thursday with radiation into the jaw on the right side as well as the right upper extremity with resolution after several minutes with associated nausea, dyspnea and diaphoresis with return twice on Thursday lasting initially 10 minutes and the second time in our with resolution while in the emergency room. In the ED workup included T 97.9, heart rate 64, BP 113/74, respiratory rate 16, 98% room air, CBC unremarkable except platelet count 125, unremarkable BMP aside glucose 165, troponin normal 1, EKG with no comparison but noted flattened T waves in II, III, aVF, V4, V5, V6, CXR without no acute process. In the ED Cardiology Dr. Rocha consulted per Dr. Weir with evaluation and decision for transition following admission to cardiac catheterization. In the ED patient administered ASA 324 mg po x 1, plavix load 300 mg po x 1. Patient was admitted to PCU, maintained on a monitored bed, continued serial cardiac enzyme trending which remained unremarkable. Obtained magnesium level upon admission, 2.0, normal. TSH and FT4 unremarkable. Continued medical management w/ asa, plavix loaded as noted, hold on addition BB given low normal BP, statin w/ AM FLP. Cardiac catheterization performed w/ noted normal coronary arteries with preserved LV systolic function and normal EDP, normal LV size, wall motion and systolic function with recommended continue medical therapy. Given patient resolution of chest discomfort and no further reoccurrence per clearance per cardiology patient discharged to home with recommended follow-up with primary care physician. Additionally encouraged tobacco cessation and nicotine replacement offered upon discharge. Discharge Activity: - - Please maintain post-cardiac catheterization parameters per Cardiolog direction. Call your doctor if you observe: Fever of 101 or Higher, Inability to urinate, Inability to have a bowel movement, Shortness of breath, Dizziness, Fainting spells, Chest pain, Uncontrolled pain Home Medications: Medications to take at Discharge Albuterol Inhaler [Ventolin Hfa] 2 puff INHALATION Q4H PRN PRN 04/06/14 Fluticasone/Salmeterol [Advair 500/50 Mcg Diskus] 1 puff INHALATION DAILY 04/06/14 Loratadine [Claritin] 10 mg PO DAILY 04/06/14 Cyclobenzaprine [Flexeril] 5 mg PO BID PRN PRN 11/11/17 Sertraline HCl [Zoloft] 100 mg PO QHS 11/11/17 traZODone [Desyrel] 1 - 2 tab PO QHS PRN 11/11/17 Aspirin [Aspirin EC] 325 mg PO DAILY 05/07/18 Bacillus Coagulans [Probiotic] 1 each PO DAILY 05/07/18 Ergocalciferol [Vitamin D] 50,000 units PO QWEEK 05/07/18 Gemfibrozil [Lopid] 600 mg PO BID 05/07/18 Levothyroxine [Synthroid] 75 mcg PO DAILY 05/07/18 Metronidazole 500 mg PO BID 05/07/18 Multivitamin [Multiple Vitamins] 1 each PO DAILY 05/07/18 Nicotine [Nicoderm Cq] 7 mg TRANSDERM. DAILY PRN #14 patch 05/07/18 Pantoprazole Sodium [Protonix] 40 mg PO DAILY 05/07/18 Rosuvastatin Calcium [Crestor] 10 mg PO DAILY 05/07/18 Following Prescrptions Were Given to Patient: Nicotine [Nicoderm Cq] 7 mg TRANSDERM. DAILY PRN #14 patch PRN Reason: Nicotine Craving Primary Care Physician: Argenis Dill NP-C [Primary Care Provider] - Please follow up with your Primary Care Physician in: Follow- up within 3-5 days to review admission. Patient Instructions: Tips for Quitting Smoking (Cardiovascular), Why Do You Smoke?, Planning to Quit Smoking, Getting Support for Quitting Smoking, ED Chest Pain NonCardiac, ED Chest Pain Atypical Unkn Cause Disposition: Home Minutes spent on discharge:: 35 Patient Condition:: Fair Medical Necessity - Tobacco Use Smoking Status: Current every day smoker - Currently one fourth pack per day tobacco use but up to 1 pack per day, cigarette tobacco usage since teenager. Tobacco Use: Cigarettes Meaningful Use Info Meaningful Use Diagnoses (Choose all that apply): None applicable Code Visit OBSV E AND M: 80630 Observ/hosp same date L3 05/07/18 1526 <Electronically signed by Kailey Weller > Date Kailey Weller Cosigner Signature (if applicable): Date CC: Kailey Weller; Argenis BENITEZ Signed TROPONIN-I Collected: 05/07/2018 Status: F Source: [place] 3:15 PM [facility] REPOSITORY Order Comment: 'TROP' Serial specimen #1, #2 or #3: 3 TYPE CODE TESTS RESULT OUT OF RANGE REFERENCE UNITS LAB [id number] <0.045 ng/mL Normal < 0.015 TROPONIN-I Result Comment: TROPONIN-I EXPECTED VALUES <0.045 Negative 0.045 - 0.590 Consistent with Cardiac Damage > OR = 0.600 Critical Value Not every elevated troponin is indicative of NJ. These values should be used with clinical judgement in examining the patient's clinical picture for diagnosis. To establish a diagnosis of NJ versus myocardial injury, there must be a demonstrated rise and/or fall in the troponin values, in addition to ischemic symptoms, EKG changes, new regional wall motion abnormality, and/or angiographical evidence. PLEASE NOTE: REFERENCE RANGES EDITED 18 Performed By: #### L501.4010 #### [facility] [address] [place], [place] [address]jam[place], [address] DISCHARGE INSTRUCTION Observed: 05/07/2018 Status: F Source: [place] 2:58 PM [facility] REPOSITORY [facility] Medical Records Department [address] [place] [address] Instructions for Home/Discharge Instructions 05/07/18 1455 MR#: [id number] Acct: [id number] Name: LYN MOMIN Rep #: [id number] : 1965 52 From: Kailey Weller PCP: Argenis Feng Status: ADM ENMANUEL - Discharge Diagnoses Current Active Problems: Current Active and Chronic Problems (1) Chest Pain w/ concern for ACS, RULED OUT, unremarkable cardiac catheterization, Unclear Specific Etiology, Possible Atypical Complex Migraine, RESOLVED (2) Asthma/Suspected Chronic COPD (3) Hyperlipidemia (4) Hypothyroidism, TSH and FT4 normal. (5) Tobacco Abuse (6) Anxiety and depression (7) Thrombocytopenia, mild, unclear baseline. (8) GERD (9) Former polysubstance abuse, alcohol abuse history (10) Migraine Headaches (11) Recent Bacterial Vaginosis You will use the following diet at home:: Cardiac Your food should be the consistency of: Regular Your liquids should be the consistency of: Regular/Thin Discharge Activity: - - Please maintain post-cardiac catheterization parameters per Cardiolog direction. Call your doctor if you observe: Fever of 101 or Higher, Inability to urinate, Inability to have a bowel movement, Shortness of breath, Dizziness, Fainting spells, Chest pain, Uncontrolled pain Instructions: ED Chest Pain Atypical Unkn Cause, ED Chest Pain NonCardiac, Tips for Quitting Smoking (Cardiovascular), Why Do You Smoke?, Planning to Quit Smoking, Getting Support for Quitting Smoking Allergies/Adverse Reactions: Allergies acetaminophen [From Percocet] Allergy (Verified 05/07/18 08:38) Hives famotidine [From Pepcid] Allergy (Verified 05/07/18 08:38) Other icosapent ethyl [From Vascepa] Allergy (Verified 05/07/18 08:38) Other lamotrigine [From Lamictal] Allergy (Verified 05/07/18 08:38) Shortness of breath latex Allergy (Verified 05/07/18 08:38) Hives oxycodone [From Percocet] Allergy (Verified 05/07/18 08:38) Hives Penicillins Allergy (Verified 05/07/18 08:38) Hives pravastatin [From Pravachol] Allergy (Verified 05/07/18 08:38) Hives topiramate Allergy (Verified 05/07/18 08:38) Other ziprasidone HCl [From Geodon] Allergy (Verified 05/07/18 08:38) Shortness of breath ziprasidone mesylate [From Geodon] Allergy (Verified 05/07/18 08:38) Shortness of breath Medications to take at Discharge Albuterol Inhaler [Ventolin Hfa] 2 puff INHALATION Q4H PRN PRN 04/06/14 Fluticasone/Salmeterol [Advair 500/50 Mcg Diskus] 1 puff INHALATION DAILY 04/06/14 Loratadine [Claritin] 10 mg PO DAILY 04/06/14 Cyclobenzaprine [Flexeril] 5 mg PO BID PRN PRN 11/11/17 Sertraline HCl [Zoloft] 100 mg PO QHS 11/11/17 traZODone [Desyrel] 1 - 2 tab PO QHS PRN 11/11/17 Aspirin [Aspirin EC] 325 mg PO DAILY 05/07/18 Bacillus Coagulans [Probiotic] 1 each PO DAILY 05/07/18 Ergocalciferol [Vitamin D] 50,000 units PO QWEEK 05/07/18 Gemfibrozil [Lopid] 600 mg PO BID 05/07/18 Levothyroxine [Synthroid] 75 mcg PO DAILY 05/07/18 Metronidazole 500 mg PO BID 05/07/18 Multivitamin [Multiple Vitamins] 1 each PO DAILY 05/07/18 Nicotine [Nicoderm Cq] 7 mg TRANSDERM. DAILY PRN #14 patch 05/07/18 Pantoprazole Sodium [Protonix] 40 mg PO DAILY 05/07/18 Rosuvastatin Calcium [Crestor] 10 mg PO DAILY 05/07/18 The following prescriptions were given: Nicotine [Nicoderm Cq] 7 mg TRANSDERM. DAILY PRN #14 patch PRN Reason: Nicotine Craving Primary Care Physician: Argenis Dill NP-C [Primary Care Provider] - Please follow up with your Primary Care Physician in: Follow- up within 3-5 days to review admission. Test Results: Test results from this visit will be discussed in further detail at your follow-up appointment, if applicable. Proposed Discharge Date: 05/07/18 05/07/18 6979 <Electronically signed by Kailey Weller > Date Kailey Weller CC: Argenis BENITEZ HISTORY AND PHYSICAL Observed: 05/07/2018 Status: F Source: [place] EXAM 1:46 PM [facility] REPOSITORY [facility] Medical Records Department [address] [place] [address] History and Physical 05/07/18 0936 MR#: [id number] Acct: [id number] Name: LYN MOMIN Rep #: [id number] : 1965 52 From: Kailey Weller PCP: Argenis Feng Status: ADM ENMANUEL Y Location: [place] [address] Problem List (1) Chest discomfort Status: Acute (2) COPD (chronic obstructive pulmonary disease) Status: Suspected Qualifiers: COPD type: unspecified COPD Qualified Code(s): J44.9 - Chronic obstructive pulmonary disease, unspecified (3) HLD (hyperlipidemia) Status: Chronic Qualifiers: Hyperlipidemia type: unspecified Qualified Code(s): E78.5 - Hyperlipidemia, unspecified (4) Chronic low back pain Status: Chronic Qualifiers: Back pain laterality: unspecified Sciatica presence: unspecified whether sciatica present Qualified Code(s): M54.5 - Low back pain; G89.29 - Other chronic pain (5) Hypothyroidism Status: Chronic Qualifiers: Hypothyroidism type: unspecified Qualified Code(s): E03.9 - Hypothyroidism, unspecified (6) Gastroesophageal reflux disease Status: Chronic Qualifiers: Esophagitis presence: esophagitis presence not specified Qualified Code(s): K21.9 - Gastro-esophageal reflux disease without esophagitis (7) Depression Status: Chronic Qualifiers: Depression Type: unspecified Qualified Code(s): F32.9 - Major depressive disorder, single episode, unspecified (8) Asthma Status: Chronic Qualifiers: Asthma severity: unspecified severity Asthma persistence: unspecified Asthma complication type: unspecified Qualified Code(s): J45.909 - Unspecified asthma, uncomplicated History of Present Illness Date of Admission: 05/07/18 Chief Complaint: Chest pain The patient is a 52 y/o F w/ PMHx: Tobacco use (1/4 ppd), HLD, Hypothyroidism, COPD, Anxiety and Depression, GERD, Chronic COPD, Overweight, Former Polysubstance abuse and EtOH abuse (Clean and sober x 9 years) who presents to the [facility] ED on 05/07/18 with history of ongoing intermittent chest discomfort described as pressure and tightness across the chest, occurring with both exertion and at rest, with onset initially this past Thursday with radiation into the jaw on the right side as well as the right upper extremity with resolution after several minutes with associated nausea, dyspnea and diaphoresis with return twice on Thursday lasting initially 10 minutes and the second time in our with resolution while in the emergency room. In the ED workup included T 97.9, heart rate 64, BP 113/74, respiratory rate 16, 98% room air, CBC unremarkable except platelet count 125, unremarkable BMP aside glucose 165, troponin normal 1, EKG with no comparison but noted flattened T waves in II, III, aVF, V4, V5, V6, CXR without no acute process. In the ED Cardiology Dr. Rocha consulted per Dr. Weir with evaluation and decision for transition following admission to cardiac catheterization. In the ED patient administered ASA 324 mg po x 1, plavix load 300 mg po x 1. Past Medical History Past Medical History (Chronic Problems): Chronic Problems HLD (hyperlipidemia) (Chronic) Status post lumbar spinal fusion (Chronic) Chronic low back pain (Chronic) Hypothyroidism (Chronic) Gastroesophageal reflux disease (Chronic) Depression (Chronic) Asthma (Chronic) Allergies acetaminophen [From Percocet] Allergy (Verified 05/07/18 08:38) Hives famotidine [From Pepcid] Allergy (Verified 05/07/18 08:38) Other icosapent ethyl [From Vascepa] Allergy (Verified 05/07/18 08:38) Other lamotrigine [From Lamictal] Allergy (Verified 05/07/18 08:38) Shortness of breath latex Allergy (Verified 05/07/18 08:38) Hives oxycodone [From Percocet] Allergy (Verified 05/07/18 08:38) Hives Penicillins Allergy (Verified 05/07/18 08:38) Hives pravastatin [From Pravachol] Allergy (Verified 05/07/18 08:38) Hives topiramate Allergy (Verified 05/07/18 08:38) Other ziprasidone HCl [From Geodon] Allergy (Verified 05/07/18 08:38) Shortness of breath ziprasidone mesylate [From Geodon] Allergy (Verified 05/07/18 08:38) Shortness of breath Home Medications: Ambulatory Orders Medication Instructions Recorded Albuterol Inhaler [Ventolin Hfa] 2 puff INHALATION Q4H PRN PRN 04/06/14 Surgical History: - - Right breast cyst removal, hysterectomy, lumbar and cervical fusion, cholecystectomy, appendectomy, TMJ surgery, left arthroscopic shoulder surgery, left fifth finger amputation. 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 Tobacco Use: Cigarettes Alcohol: Sober - Sober 9 years. Drugs: - - Clean status 9 years, prior usage included cocaine, crank, crack, snorted as well as smoked and oral intake but no IV drug abuse history. - *Family History Maternal History Items: - - Maternal family history of high blood pressure, heart disease, anemia, breast cancer, vertigo. Paternal History Items: - - Paternal family history of hypertension, cancer, congestive heart failure, coronary artery disease status post CABG, gout, diabetes. Sibling History Items: - - Sister with history of diabetes as well as coronary disease. Review of Systems Constitutional: Reports: Malaise, Weakness, Fatigue. Denies: Chills, Fever, Weight Change HEENT: Reports: Head Aches. Denies: Sinus Congestion, Sinus Drainage Cardiovascular: Reports: Chest Pain, Chest Pressure, Chest Tightness. Denies: Palpitations Respiratory: Reports: Shortness of Breath. Denies: Cough, Shortness of breath at rest, Sputum production Gastrointestinal: Reports: Nausea. Denies: Abdominal Pain, Vomiting Genitourinary: Denies: Dysuria Musculoskeletal: Denies: Joint Pain, Joint Tenderness Skin: Denies: Rash, Wounds Neurological: Denies: Numbness, Tingling, Focal weakness Psychiatric: Reports: Anxiety, Depression. 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 Patient Problems: Active and Suspected Problems Chest discomfort (Acute) COPD (chronic obstructive pulmonary disease) (Suspected) Subjective: Seated upright in bed, no acute distress, no current chest discomfort. Objective: Physical Examination: General: awake, alert, oriented x 3 and cooperative, seated upright in bed in no apparent distress. Skin: normal color, turgor, no icterus, cyanosis. HEENT: AT/NC, EOMI, PERRLA, MMM, no carotid bruits or JVD noted. Lungs: CTA bilaterally, moderate effort, mild decrease BL bases, no rales, ronchi or wheezing. Heart: Regular rate and rhythm; no gallop, rub audible. Abdomen: soft, overweight, NTTP, ND, normal BS, no HSM. Extremities: no cyanosis, clubbing, or edema, status post left hand fifth digit amputation. Neurological: patient awake, alert, oriented x 3; cognitive function intact; pupils equally reactive to light and accomodation; cranial nerves II-XII grossly normal, moving all 4 extremities, no focal deficits, strength preserved. Psychiatric: affect appears anxious with transition to cardiac catheterization, no acute evidence of depressive feelings. - Physical Exam Vital Signs Temp Pulse Resp BP Pulse Ox 97.5 F L 85 14 136/85 H 97 05/07/18 08:36 05/07/18 08:36 05/07/18 08:36 05/07/18 08:36 05/07/18 08:36 Oxygen Delivery Method Room Air Weight: 157 lb 6.561 oz Body Mass Index (BMI) 29.7 Finger Stick Blood Glucose 68 Laboratory Tests Past 24 Hrs WBC 7.9 RBC 4.58 Hgb 15.2 H Hct 43.1 MCV 94.1 MCH 33.2 H MCHC 35.3 RDW 13.3 Assessment/Plan All Active Problems Chest discomfort (Acute) The patient is a 52 y/o F w/ PMHx: Tobacco use (1/ ppd), HLD, Hypothyroidism, COPD, Anxiety and Depression, GERD, Chronic COPD, Overweight, Former Polysubstance abuse and EtOH abuse who presents to the [facility] ED on 05/07/18 with history of ongoing intermittent chest discomfort described as pressure and tightness across the chest, occurring with both exertion and at rest, with onset initially this past Thursday with radiation into the jaw on the right side as well as the right upper extremity with resolution after several minutes with associated nausea, dyspnea and diaphoresis with return twice on Thursday lasting initially 10 minutes and the second time in our with resolution while in the emergency room. (1) Chest Pain w/ concern for ACS: ED workup included T 97.9, heart rate 64, BP 113/74, respiratory rate 16, 98% room air, CBC unremarkable except platelet count 125, unremarkable BMP aside glucose 165, troponin normal 1, EKG with no comparison but noted flattened T waves in II, III, aVF, V4, V5, V6, CXR without no acute process. In the ED patient administered ASA 324 mg po x 1, plavix load 300 mg po x 1. Will admit to PCU, maintain on a monitored bed, continue serial cardiac enzymes and EKGs. Obtained magnesium level upon admission, 2.0, normal. Continue medical management w/ asa, plavix loaded as noted, hold on addition BB given low normal BP, statin w/ AM FLP. Cardiology consulted, plan for cardiac catheterization. Maintain NPO. ASA, NG, morphine. If cardiac catheterization negative given resolution of symptoms would plan discharge to home if cardiology amenable. (2) Asthma/Suspected Chronic COPD: ATC duonebs, PRN albuterol, HOB, IS parameters. (3) Hyperlipidemia: Continue home statin regimen. AM FLP. (4) Hypothyroidism: Continue home synthroid regimen, TSH and FT4 obtained, normal. (5) Tobacco Abuse: Encouraged cessation, inpatient consultation per RT, NR if desired. (6) Anxiety and depression: Continue home Zoloft and trazodone regimen. (7) Thrombocytopenia, mild: Admission platelet 145, unclear baseline. (8) GERD: Continue home Protonix regimen. (9) Former polysubstance abuse, alcohol abuse history: Confirmed clean and sober 9 years, encouraged continuation of this pathway. (10) Migraine Headaches: If cardiac catheterization unremarkable, her presentation could potentially due to an atypical complex migraine. Currently resolved as noted. (11) Recent Bacterial Vaginosis: Continue BID flagyl regimen. (12) DVT prophylaxis: SCDs, holding lovenox for planned cardiac catheterization per Dr. Rocha. Code Visit OBSV E AND M: [id number] Initial observation care L3 05/07/18 1345 <Electronically signed by Kailey Weller > Date Kailey Weller Cosigner Signature: Date (if applicable) CC: Kailey Weller; Argenis BENITEZ Signed CBC W/DIFF, AUTOMATED Collected: 05/07/2018 Status: F Source: MARY 9:00 AM [facility] REPOSITORY TYPE CODE TESTS RESULT OUT OF RANGE REFERENCE UNITS LAB L100.1000 4.4-11.0 K/mm3 Normal WBC 7.9 LAB L100.1200 4.2-5.4 M/mm3 Normal RBC 4.58 LAB L100.1300 12.0-15.0 g/dl High HGB 15.2 LAB L100.1400 37-47 % Normal HCT 43.1 LAB L100.1500 81-99 fL Normal MCV 94.1 LAB L100.1600 27.0-32.0 pg High MCH 33.2 LAB L100.1700 32-36 g/gl Normal MCHC 35.3 LAB L100.1810 11.6-14.6 % Normal RDW CV 13.3 LAB L100.1820 35.1-43.9 fl Normal RDW SD 43.9 LAB L100.1900 150-450 K/mm3 Low PLT 145 LAB L100.2000 6.2-12.0 fl Normal MPV 11.6 LAB L100.2100 47-70 % Normal NEUT% 66.3 LAB L100.2200 19-41 % Normal LY% 24.5 LAB L100.2300 0-10 % Normal MONO% 7.2 LAB L100.2400 0-5 % Normal EO% 1.6 LAB L100.2500 0-1 % Normal BASO% 0.3 LAB L100.2550 0.0-0.9 % Normal IM GRAN % 0.100 Result Comment: IG% - Immature Granulocytes (promyelocytes, myelocytes and metamyelocytes) > 1% indicates that a LEFT SHIFT is Present. LAB L100.2620 2.0-7.7 X10 3/uL Normal Absolute Neut 5.2 LAB L100.2720 0.83-4.51 X10 3/ul Normal Absolute Lymph 1.93 Performed By: #### L100.0100 #### [facility] [address] [place], [address] BASIC METABOLIC Collected: 05/07/2018 Status: F Source: [place] PROFILE (BMP) 9:00 AM [facility] REPOSITORY TYPE CODE TESTS RESULT OUT OF RANGE REFERENCE UNITS LAB L501.0100 74-106 mg/dL High GLU 165 Result Comment: Fasting Glucose result greater than or equal to 126 mg/dL suggests DIABETES MELLITUS per A.D.A. criteria. Please note revised GLUCOSE reference range effective 2017. LAB L501.1000 7-18 mg/dL Normal BUN 17 LAB L501.1100 0.55-1.02 mg/dL Normal CREAT,SERUM 0.89 Result Comment: The validity of the calculated GFR AND GFRAA in patients over 70 years has not been determined. Clinical correlation is essential. LAB L501.1110 >60 mL/min Normal EST GFR 71 Result Comment: Non- GFR Calc LAB L501.1115 >60 mL/min Normal EST GFR - AA 86 Result Comment: GFR Calc LAB L501.1255 ml/min Normal Estimated CRCL 57.06 LAB L501.1300 10-20 RATIO Normal BUN/CRE 19.1 LAB L501.2200 8.5-10 mg/dL Normal .1 CA 9.2 LAB L501.5300 136-14 mmol/L Normal 5 NA 140 LAB L501.5600 3.5-5. mmol/L Normal 1 K 3.8 LAB L501.5900 98-107 mmol/L Normal CL 107 LAB L501.6100 21.0-3 mmol/L Normal 2.0 CO2 26.0 LAB L501.6200 5-15 Normal GAP 7 Performed By: #### L500.2500, L501.4010 #### [facility] [address] [place], [place], [address] TROPONIN-I Collected: 05/07/2018 Status: F Source: [place] 9:00 AM [facility] REPOSITORY TYPE CODE TESTS RESULT OUT OF RANGE REFERENCE UNITS LAB L501.4010 <0.045 ng/mL Normal < 0.015 TROPONIN-I Result Comment: TROPONIN-I EXPECTED VALUES <0.045 Negative 0.045 - 0.590 Consistent with Cardiac Damage > OR = 0.600 Critical Value Not every elevated troponin is indicative of NJ. These values should be used with clinical judgement in examining the patient's clinical picture for diagnosis. To establish a diagnosis of NJ versus myocardial injury, there must be a demonstrated rise and/or fall in the troponin values, in addition to ischemic symptoms, EKG changes, new regional wall motion abnormality, and/or angiographical evidence. PLEASE NOTE: REFERENCE RANGES EDITED 18 Performed By: #### L500.2500, L501.4010 #### [facility] [address] [place], [address] HEMOGLOBIN A1C Collected: 05/07/2018 Status: F Source: [place] 9:00 AM [facility] REPOSITORY TYPE CODE TESTS RESULT OUT OF RANGE REFERENCE UNITS LAB L501.9985 4.2-6.3 % Normal HGB A1C 5.4 Performed By: #### L501.9985 #### [facility] [address] [place], [address] MAGNESIUM Collected: 05/07/2018 Status: F Source: MARY 9:00 AM [facility] REPOSITORY TYPE CODE TESTS RESULT OUT OF RANGE REFERENCE UNITS LAB L501.5200 1.6-2.6 mg/dL Normal MG 2.0 Performed By: #### L501.5200, L501.9520, L506.0400 #### [facility] [address] [place], [address] THYROID STIM HORMONE Collected: 05/07/2018 Status: F Source: [place] (TSH) 9:00 AM [facility] REPOSITORY TYPE CODE TESTS RESULT OUT OF RANGE REFERENCE UNITS LAB L501.9520 0.358-3.74 uIU/mL Normal TSH 2.06 Performed By: #### L501.5200, L501.9520, L506.0400 #### [facility] [address] [place], [address] T4 FREE DIRECT Collected: 05/07/2018 Status: F Source: MARY 9:00 AM [facility] REPOSITORY TYPE CODE TESTS RESULT OUT OF RANGE REFERENCE UNITS LAB L506.0400 0.76-1.46 ng/dL Normal T4 FREE 0.77 DIRECT Performed By: #### L501.5200, L501.9520, L506.0400 #### [facility] [address] [place], [address] ,SERUM,HCG QUALI. Collected: Status: F Source: MARY 05/07/2018 9:00 AM [facility] REPOSITORY Order Comment: Comments: in lab TYPE CODE TESTS RESULT OUT OF REFERENCE UNITS RANGE LAB L700.7000 0-9 Nonpreg Negative Normal HCGSQUAL NEGATIVE LAB L700.6700 =>Qualitative mIU/mL Normal HCG Qual 2 triggr Performed By: #### L700.6800 #### [facility] [address] [place], [address] CHEST 1 VIEW Observed: 05/07/2018 Status: F Source: MARY (PORTABLE) 8:48 AM [facility] REPOSITORY [facility] Imaging Services [address] [place] [address] Chest 1 View (Portable) MR#: [id number] Acct: [id number] Name: LYN MOMIN Rep #: [id number] : 1965 F 52 From: Lucía Loo MD PCP: Argenis Feng Status: REG ER Study: Chest 1 View (Portable) Date of Exam: 05/07/18 Exam# [id number] Ordering Dr: Eloy Weir MD STUDY: X-RAY CHEST REASON FOR EXAM: Female, 52 years old. Chest pain. TECHNIQUE: Single AP portable view of the chest. COMPARISON: February 19, 2018 FINDINGS: Cardiac monitoring leads are present. The lungs are clear and expanded. There is no demonstrated pleural abnormality. Normal size heart. Normal mediastinum and tanya. Normal visualized pulmonary arteries. There is atherosclerotic calcification of the aortic arch with tortuosity. There is mild curvature of the thoracic spine with convexity towards the left. Normal visualized ribs, clavicles, and shoulders. There is no demonstrated abnormality of the visualized soft tissue structures of the upper abdomen. RAD/Chest 1 View (Portable) IMPRESSION: No radiographic evidence of acute cardiopulmonary disease. Electronically Signed: Lucía Loo MD at 9:21 EDT , Service support , CC: Eloy Weir MD; Argenis BENITEZ Senior Quality Assurance Engineer: Signed XR PORTABLE CHEST Observed: 05/05/2018 Status: F Source: [facility] (1VIEW) 4:38 PM [facility] [address] [place] [address] Diagnostic Imaging Report : [id number] Signed Name: LYN MOMIN MRUN: [id number] : 1965 Loc: ED Age / Sex: 52 / F ADM Status: REG ER ADM Date: 05/05/18 Room/Bed: Ordering Physician: Sherwin KAN, Pamda Danielle Procedure: XR PORTABLE CHEST (1VIEW) Order Number(s): [id number] Ordered Date: 05/05/18 Ordered Time: 1611 EXAMINATION: SINGLE XRAY VIEW OF THE CHEST 05/05/2018 4:32 pm COMPARISON: Portable chest 11/09/2015. HISTORY: Acute Chest Pain FINDINGS: AP erect portable shows anatomic heart size. Hilar regions are within normal limits. No focal lung infiltrate or consolidation. No pleural effusion or pneumothorax. ACDF with plate and screw fixation midline low cervical spine. IMPRESSION: No acute cardiopulmonary process. Dictated By: Janice Carmen DO Dictated Date/Time: 05/05/18 1638 Signed By: Krsi Carmen DO Signed Date/Time: 05/05/18 1643 Transcribed Date/Time: 05/05/[address] HEAD W/O CONTRAST Observed: 05/05/2018 Status: F Source: [facility] 4:32 PM [facility] REPOSITORY [facility] Diagnostic Imaging Services [address] [place], [place] [id number] Diagnostic Imaging Report : [id number] Signed Name: LYN MOMIN MRUN: [id number] : 1965 Loc: ED Age / Sex: 52 / F ADM Status: REG ER ADM Date: 05/05/18 Room/Bed: Ordering Physician: Padma Courtney MD Procedure: CT HEAD W/O CONTRAST Order Number(s): [id number] Ordered Date: 05/05/18 Ordered Time: 162 EXAMINATION: CT OF THE HEAD WITHOUT CONTRAST 05/05/2018 4:29 pm TECHNIQUE: CT of the head was performed without the administration of intravenous contrast. Dose modulation, iterative reconstruction, and/or weight based adjustment of the mA/kV was utilized to reduce the radiation dose to as low as reasonably achievable. COMPARISON: CT brain without contrast 11/18/2015. HISTORY: Right-sided numbness FINDINGS: Ordonez-white differentiation is satisfactory. No acute intraparenchymal infarct edema or hemorrhage. No acute extra-axial collections. The ventricles are symmetrical with no shift of midline. The posterior fossa is satisfactory. The orbits and retrobulbar regions are symmetrical. No acute scalp soft tissue findings. The calvarium is intact. Developmental hypoplasia of frontal sinus. The remaining paranasal sinuses appear well pneumatized as seen. Mastoid air cells appear satisfactory. External ear canals and middle ears are patent. TM joints are symmetrical. IMPRESSION: No acute intracranial abnormality. MR imaging if continued symptomatology or clinical suspicion. Dictated By: Janice Carmen DO Dictated Date/Time: 05/05/18 1632 Signed By: Kris Carmen DO Signed Date/Time: 05/05/18 1640 Transcribed Date/Time: 05/05/18 1637 BASIC METABOLIC PANEL Collected: 05/05/2018 Status: F Source: [facility] 4:15 PM [facility] REPOSITORY TYPE CODE TESTS RESULT OUT OF RANGE REFERENCE UNITS LAB AGE(LOINC) Years AGE,PATIENT 52 LAB NA 2(LOINC) 137-145 mmol/L Low SODIUM 136 LAB K 1(LOINC) 3.6-5.0 mmol/L Normal POTASSIUM 4.1 LAB CL 1(LOINC) 98-107 mmol/L CHLORIDE Normal 101 LAB CO2 22-31 mmol/L 1(LOINC) CARBON Normal DIOXIDE 24 LAB GAP(LOINC) 9-18 mmol/L ANION Normal GAP 15 LAB BUN 7-21 mg/dL 1(LOINC) BLOOD Normal UREA NITROGEN 13 LAB CREAT 0.80-1.30 mg/dL 1(LOINC) Low CREATININE 0.72 LAB EGFR(LOINC) mL/min Normal ESTIMATED > 60.000 GLOMERULAR FILT RATE LAB BCRATIO(ARRON 5.0-42.0 Ratio NC) Normal BUN/CREATININE 18.1 RATIO LAB GLU 70-99 mg/dL BMP(LOINC) High GLUCOSE 131 Result Comment: The glucose range is based on recommendations from the [place] [employer] for fasting blood glucose range. LAB CA 1(LOINC) 8.4-10.2 mg/dL Normal CALCIUM 9.9 LAB PHARM CRCL(LOINC) ESTIMATED CREAT CLEARANCE 70.54 Result Comment: COCKCROFT-GAULT FORMULA 1973 Performed By: #### BMP, CPK 1, CKMB 1, TROP 1 #### Main Lab - [facility] [place], [place] [address] CREATINE KINASE Collected: 05/05/2018 Status: F Source: [facility] 4:15 PM [facility] REPOSITORY TYPE CODE TESTS RESULT OUT OF REFERENCE UNITS RANGE LAB CPK 55-170 U/L 1(LOINC) High CREATINE 262 KINASE Performed By: #### BMP, CPK 1, CKMB 1, TROP 1 #### Main Lab - [facility] [address] [place], [place] [address] CREATINE KINASE MB Collected: 05/05/2018 Status: F Source: [facility] 4:15 PM [facility] REPOSITORY TYPE CODE TESTS RESULT OUT OF RANGE REFERENCE UNITS LAB CKMB 0.0-3.7 ng/mL 1(LOINC) Normal CREATINE 3.5 KINASE MB Performed By: #### BMP, CPK 1, CKMB 1, TROP 1 #### Main Lab - [facility] [address] [place], [place] [address] TROPONIN I Collected: 05/05/2018 Status: F Source: [facility] 4:15 PM [facility] REPOSITORY TYPE CODE TESTS RESULT OUT OF RANGE REFERENCE UNITS LAB TROP 0.0-0.03 ng/mL 1(LOINC) Normal TROPONIN I < 0.03 Result Comment: Reference Interval < or = 0.03 ng/mL Clinical Correlation Needed 0.03 - 0.12 ng/mL AMI Cutoff, Presumptive = or > 0.12 ng/mL Performed By: #### BMP, CPK 1, CKMB 1, TROP 1 #### [place] [address] CBC WITH AUTO Collected: 05/05/2018 Status: F Source: [facility] DIFF 4:15 PM [facility] REPOSITORY TYPE CODE TESTS RESULT OUT OF REFERENCE UNITS RANGE LAB WBC(LOINC) 4.0-10.5 10 3/uL WHITE BLOOD Normal COUNT 8.7 LAB RBC(LOINC) 3.89-5.30 x10 6/uL RED BLOOD Normal COUNT 4.48 LAB HGB(LOINC) 11.6-14.9 g/dL HEMOGLOBIN Normal 14.9 LAB HCT(LOINC) 34.8-45.0 % HEMATOCRIT Normal 41.9 LAB MCV(LOINC) 78.0-100.0 fL MEAN Normal CORPUSCULAR VOLUME 93.5 LAB MCH(LOINC) 27.0-31.0 pg MEAN High CORPUSCULAR 33.2 HEMOGLOBIN LAB MCHC(LOINC 32.0-36.0 g/dL ) MEAN Normal CORPUSCULAR HGB 35.5 CONC LAB RDW(LOINC) 11.5-14.0 % RED CELL Normal DISTRIBUTION WIDTH 13.9 LAB PLT(LOINC) 150-450 10 3/uL PLATELET COUNT Normal 151 LAB MPV(LOINC) 6.0-9.5 fl MEAN PLATELET High VOLUME 10.6 LAB NE%(LOINC) 36.0-66.0 % NEUTROPHILS % Normal (AUTO) 57.7 LAB LY%(LOINC) 24.0-44.0 % LYMPHOCYTES % Normal (AUTO) 33.0 LAB MO%(LOINC) 1.7-9.3 % MONOCYTES % Normal (AUTO) 7.3 LAB EO%(LOINC) 0.0-5.0 % EOSINOPHILS % Normal (AUTO) 1.9 LAB BA%(LOINC) 0.0-1.0 % BASOPHILS % Normal (AUTO) 0.1 LAB NE# 1.5-6.7 10 3/uL NEUTROPHILS, Normal ABSOLUTE (AUTO) 5.0 LAB LY#(LOINC) 1.0-3.5 10 3/uL LYMPHOCYTES, Normal ABSOLUTE (AUTO) 2.9 LAB MO#(LOINC) 0.2-0.8 10 3/uL MONOCYTES, Normal ABSOLUTE (AUTO) 0.6 LAB EO#(LOINC) 0.0-0.7 10 3/uL EOSINOPHILS, Normal ABSOLUTE (AUTO) 0.2 LAB BA#(LOINC) 0.0-0.2 10 3/uL BASO, ABSOLUTE Normal (AUTO) 0.0 Performed By: #### CBC #### Main Lab - [facility] [address] [place] [address] PT WITH INR Collected: 05/05/2018 Status: F Source: [facility] 4:15 PM [facility] REPOSITORY TYPE CODE TESTS RESULT OUT OF RANGE REFERENCE UNITS LAB PT1(LOINC) 12.0-14.5 SEC PROTHROMBIN Normal TIME 12.3 LAB INR(LOINC) INR Normal 0.9 Result Comment: RECOMMENDED RANGES FOR INR: Therapeutic range for standard therapy INR: 2.0-3.0 Therapeutic range for high dose therapy INR: 2.5-3.5 Performed By: #### PT, PTT #### Main Lab - [facility] [address] [place] [address] PARTIAL THROMBOPLASTIN Collected: 05/05/2018 Status: F Source: [facility] TIME 4:15 PM [facility] REPOSITORY TYPE CODE TESTS RESULT OUT OF REFERENCE UNITS RANGE LAB PTT(LOINC) 24.1-41.2 SEC PARTIAL Normal THROMBOPLASTIN TIME 32.3 Performed By: #### PT, PTT #### Main Lab - [facility] [address] [place] [address] PELVIS W/O Observed: 04/04/2018 Status: F Source: [facility] CONTRAST 4:21 PM [facility] REPOSITORY [facility] Imaging Services [address] [place] [address] Diagnostic Imaging Report : [id number] Signed Name: LILIANEPAIGEJOSIE Cezar MRUN: [id number] : 1965 Loc: ED Age / Sex: 52 / F ADM Status: REG ER ADM Date: 04/04/18 Room/Bed: Ordering Physician: Abdoulaye Pizarro PA-C Procedure: CT PELVIS W/O CONTRAST Order Number(s): [id number] Ordered Date: 04/04/18 Ordered Time: 1510 EXAMINATION: CT OF THE PELVIS WITHOUT CONTRAST 04/04/2018 3:22 pm TECHNIQUE: CT of the pelvis was performed without the administration of intravenous contrast. Multiplanar reformatted images are provided for review. Dose modulation, iterative reconstruction, and/or weight based adjustment of the mA/kV was utilized to reduce the radiation dose to as low as reasonably achievable. COMPARISON: None. HISTORY: fall from horse FINDINGS: Postsurgical changes of the spine. There is no evidence of acute fracture. IMPRESSION: No acute fracture identified. Mild right lateral soft tissue contusion. Incidentally noted hyperdense structure within the high midline pelvis may represent hemorrhagic cyst. Nonemergent outpatient ultrasound follow-up is recommended. Dictated By: Nicola Ortega MD Dictated Date/Time: 04/04/18 162 Signed By: Nicola Ortega MD Signed Date/Time: 04/04/18 1628 Transcribed Date/Time: 04/04/18 162 XR HIP/PELVIS, RIGHT Observed: 04/04/2018 Status: F Source: [facility] AP/LAT 2:21 PM [facility] [address] [place] [address] Diagnostic Imaging Report : [id number] Signed Name: LYN MOMIN MRUN: [id number] : 1965 Loc: ED Age / Sex: 52 / F ADM Status: REG ER ADM Date: 04/04/18 Room/Bed: Ordering Physician: Abdoulaye Pizarro PA-C Procedure: XR HIP/PELVIS, RIGHT AP/LAT Order Number(s): [id number] Ordered Date: 04/04/18 Ordered Time: 1324 EXAMINATION: SINGLE XRAY VIEW OF THE PELVIS AND 2 XRAY VEWS RIGHT HIP 04/04/2018 2:17 pm COMPARISON: None. HISTORY: fall from horse FINDINGS: Pelvis: AP view of the pelvis. There is no evidence of acute fracture. Right hip: AP and frogleg lateral views. There is no evidence of acute fracture. IMPRESSION: No evidence of acute fracture or dislocation. Dictated By: Nicola Ortega MD Dictated Date/Time: 04/04/181420 Signed By: Nicola Ortega MD Signed Date/Time: 04/04/181424 Transcribed Date/Time: 04/04/18 142 XR LOWER LEG, Observed: 04/04/2018 Status: F Source: [facility] 2:20 PM [facility] [address] [place] [address] Diagnostic Imaging Report : [id number] Signed Name: LYN MOMIN MRUN: [id number] : 1965 Loc: ED Age / Sex: 52 / F ADM Status: REG ER ADM Date: 04/04/18 Room/Bed: Ordering Physician: Abdoulaye Pizarro PA-C Procedure: XR LOWER LEG, RIGHT Order Number(s): [id number] Ordered Date: 04/04/18 Ordered Time: 1326 EXAMINATION: 2 XRAY VIEWS OF THE RIGHT TIBIA AND FIBULA 04/04/2018 2:17 pm COMPARISON: None. HISTORY: fall from horse FINDINGS: There is no evidence of acute fracture or dislocation. IMPRESSION: No evidence of acute fracture or dislocation. Dictated By: Nicola Ortega MD Dictated Date/Time: 04/04/181419 Signed By: Nicola Ortega MD Signed Date/Time: 04/04/181422 Transcribed Date/Time: 04/04/18 142 XR LUMBAR SPINE Observed: 04/04/2018 Status: F Source: [facility] 2:20 PM [facility] [address] [place] [address] Diagnostic Imaging Report : [id number] Signed Name: LYN MOMIN MRUN: [id number] : 1965 Loc: ED Age / Sex: 52 / F ADM Status: REG ER ADM Date: 04/04/18 Room/Bed: Ordering Physician: Abdoulaye Pizarro PA-C Procedure: XR LUMBAR SPINE Order Number(s): [id number] Ordered Date: 04/04/18 Ordered Time: 1324 EXAMINATION: 5 XRAY VIEWS OF THE LUMBAR SPINE 04/04/2018 2:17 pm COMPARISON: None. HISTORY: fall from horse FINDINGS: Postsurgical changes of the lower lumbar spine are appreciated. There is no evidence of acute fracture or dislocation. IMPRESSION: No acute fracture or malalignment. Dictated By: Nicola Ortega MD Dictated Date/Time: 04/04/181419 Signed By: Nicola Ortega MD Signed Date/Time: 04/04/181423 Transcribed Date/Time: 04/04/18 142 XR FEMUR, RIGHT Observed: 04/04/2018 Status: F Source: [facility] 2:18 PM [facility] REPOSITORY [facility] Services [address] [place], [place] [address] Diagnostic Imaging Report : [id number] Signed Name: LYN MOMIN MRUN: [id number] : 1965 Loc: ED Age / Sex: 52 / F ADM Status: REG ER ADM Date: 04/04/18 Room/Bed: Ordering Physician: Abdoulaye Pizarro PA-C Procedure: XR FEMUR, RIGHT Order Number(s): [id number] Ordered Date: 04/04/18 Ordered Time: 1325 EXAMINATION: TWO XRAY VIEWS OF THE RIGHT FEMUR 04/04/2018 2:17 pm COMPARISON: None. HISTORY: fall from horse FINDINGS: AP and lateral views. There is no evidence of acute fracture or dislocation. IMPRESSION: No evidence of acute fracture or dislocation. Dictated By: Nicola Ortega MD Dictated Date/Time: 04/04/181417 Signed By: Nicola Ortega MD Signed Date/Time: 04/04/181421 Transcribed Date/Time: 04/04/181417 Observed: 02/19/2018 Status: F Source: [place] CULTURE, THROAT 9:27 AM [facility] REPOSITORY Culture, Throat RESULT(S) PREVIOUSLY REPORTED ON MANUAL REQUISITION DURING DOWNTIME. ORGANISM 1: Staphylococcus aureus Amount Growth 2+ ORGANISM 2: Presumptive C albicans Amount Growth 3+ ORGANISM 3: Mixed Lynn Amount Growth 3+ Staphylococcus aureus: REACTION Clindamycin $$ <=0.25 S Erythromycin $ <=0.25 S Gentamicin $ <=0.5 S Levofloxacin $ <=0.12 S Linezolid $$$$ 2 S Moxifloxicin *NF <=0.25 S Oxacillin NF <=0.25 S Tigecycline $$$$ <=0.12 S Rifampin $$ <=0.5 S Tetracycline NF <=1 S Trimethoprim/Sulfametho $ <=10 S Vancomycin $ <=0.5 S (NF) indicates non-formulary drug at [facility]. Approval by Infectious Disease Specialist required before non-formulary drugs may be ordered and/or dispensed. * CLSI guidelines does not recommend testing of cephalosporins. This interpretation is deduced from Beta-lactam/penicillin results. Performed By: #### M100.1000 #### [facility] [address] [facility] [place], [address] ESOPHAGUS ONLY Observed: 02/19/2018 Status: F Source: [place] 8:43 AM [facility] REPOSITORY [facility] Imaging Services [address] [place] [address] Esophagus Only MR#: [id number] Acct: [id number] Name: LYN MOMIN Rep #: [id number] : 1965 F 52 From: Iglesia Mendez MD PCP: Argenis Feng Status: REG CLI Study: Esophagus Only Date of Exam: 02/19/18 Exam# [id number] Ordering Dr: Deondre Alfaro MD STUDY: X-RAY - ESOPHAGUS (BARIUM SWALLOW) WITH FLUOROSCOPY REASON FOR EXAM: Female, 52 years old. Dysphagia for solids. TECHNIQUE: 12 view(s) of the esophagus were obtained following swallowing of barium. FLUOROSCOPY TIME (if supplied): (0:25) minutes/seconds COMPARISON: None. FINDINGS: There is no demonstrated esophageal foreign body. There is no demonstrated stricture or mucosal abnormality. Normal gastroesophageal junction, without a demonstrated hiatal hernia. The patient ingested a 12 mm tablet of barium without any difficulty. Normal visualized aortic arch and descending thoracic aorta. Normal visualized pulmonary parenchyma. Normal visualized osseous structures of the thorax. RAD/Esophagus Only IMPRESSION: Normal plain film x-ray examination (barium swallow) of the esophagus. Electronically Signed: Iglesia Mendez MD at 10:04 EDT Tel [phone], Service support , CC: Deondre Alfaro MD; Argenis BENITEZ Senior Quality Assurance Engineer: Signed CHEST PA AND LATERAL Observed: 02/19/2018 Status: F Source: [place] 8:43 AM [facility] REPOSITORY [facility] Imaging Services [address] [place] [address] Chest PA and Lateral MR#: [id number] Acct: [id number] Name: LYN MOMIN Rep #: [id number] : 1965 F 52 From: Iglesia Mendez MD PCP: Argenis Feng Status: REG CLI Study: Chest PA and Lateral Date of Exam: 02/19/18 Exam# [id number] Ordering Dr: Deondre Alfaro MD STUDY: X-RAY CHEST REASON FOR EXAM: Female, 52 years old. Dysphagia. TECHNIQUE: PA and lateral views of the chest. COMPARISON: None. FINDINGS: The lungs are clear and expanded. Scattered calcified granulomas. There is no demonstrated pleural abnormality. Normal size heart. Normal mediastinum and tnaya. Normal visualized pulmonary arteries. Normal visualized aortic arch and descending thoracic aorta. Normal visualized thoracic spine. Prior fusion of the lower cervical spine. There is no demonstrated abnormality of the visualized soft tissue structures of the upper abdomen. RAD/Chest PA and Lateral IMPRESSION: No acute abnormality is seen. Electronically Signed: Iglesia Mendez MD at 14:11 EDT Tel [phone], Service support , CC: Deondre Alfaro MD; Argenis BENITEZ Senior Quality Assurance Engineer: Signed CBC Collected: 11/16/2017 Status: F Source: [facility] 12:38 [facility] REPOSITORY TYPE CODE TESTS RESULT OUT OF REFERENCE UNITS RANGE LAB WBC(LOINC) 4.60-10.80 10 3/mcL WBC 9.90 LAB RBCCT(LOINC 4.20-5.40 10 6/mcL ) RBC 4.72 LAB HGB(LOINC) 12.0-16.0 G/dL Hgb 15.2 LAB HCT(LOINC) 37.0-47.0 % Hct 44.1 LAB MCV(LOINC) 80.0-94.0 fL MCV 93.5 LAB MCH(LOINC) 27.0-31.2 pg High MCH 32.3 LAB MCHC(LOINC) 33.0-37.0 G/dL MCHC 34.6 LAB RDW(LOINC) 11.5-14.5 % RDW 13.5 LAB PLT(LOINC) 130-400 10 3/mcL Platelet 158 LAB MPV(LOINC) 7.4-10.4 fL MPV 10.3 Performed By: #### CBC, ADIFF, ANEU, BMP, GFR, TROP #### [place] [address] .AUTO DIFF Collected: 11/16/2017 Status: F Source: [facility] 12:38 [facility] REPOSITORY TYPE CODE TESTS RESULT OUT OF REFERENCE UNITS RANGE LAB ARMANDO(LOINC) 37.0-80.0 % Neutrophil % 63.1 LAB LYM(LOINC) 10.0-50.0 % Lymphocyte % 28.3 LAB MON(LOINC) 1.7-13.0 % Monocyte % 5.9 LAB EO(LOINC) 0.0-7.0 % Eosinophil % 1.4 LAB BAS(LOINC) 0.0-2.5 % Basophil % 1.3 LAB ABLYM(LOIN 0.77-3.85 10 3/mcL C) Lymphocyte, 2.80 Absolute LAB ANA(LOINC 0.15-1.00 10 3/mcL ) Monocyte, 0.60 Absolute LAB AEOS(LOINC 0.00-0.40 10 3/mcL ) Eosinophil, 0.10 Absolute LAB ABAS(LOINC 0.00-0.19 10 3/mcL ) Basophil, 0.10 Absolute Performed By: #### CBC, ADIFF, ANEU, BMP, GFR, TROP #### [place] [address] [place], [place] [address] .NEUABS Collected: 11/16/2017 Status: F Source: [facility] 12:38 PM [facility] REPOSITORY TYPE CODE TESTS RESULT OUT OF REFERENCE UNITS RANGE LAB ANEU(LOINC) 2.85-6.16 10 3/mcL High Neutrophil, 6.20 Absolute Performed By: #### CBC, ADIFF, ANEU, BMP, GFR, TROP #### [place] [address] [place], [place] [address] BMP Collected: 11/16/2017 Status: F Source: [facility] 12:38 [facility] REPOSITORY TYPE CODE TESTS RESULT OUT OF REFERENCE UNITS RANGE LAB 1547-9 70-105 mg/dL GLUCOSE High 128 LAB NA(LOINC) 136-146 mEq/L Sodium Level 138 LAB K(LOINC) 3.5-5.1 mEq/L Potassium Level 4.3 LAB CL(LOINC) 98-107 mEq/L Chloride 100 LAB CO2(LOINC) 22-29 mEq/L CO2 26 LAB EBAL(LOINC mEq/L ) Electrolyte Balance 12.0 LAB BUN(LOINC) 7.0-18.0 mg/dL BUN 16.3 LAB CRE(LOINC) 0.6-1.2 mg/dL Creatinine Lvl (s) 0.8 LAB BC(LOINC) 7-27 ratio BUN/Creatinine 20 Ratio LAB CA(LOINC) 8.4-10.2 mg/dL Calcium Lvl 9.4 Performed By: #### CBC, ADIFF, ANEU, BMP, GFR, TROP #### [place] [address] [place], [place] [address] .GFR Collected: 11/16/2017 Status: F Source: [facility] 12:38 [facility] REPOSITORY TYPE CODE TESTS RESULT OUT OF REFERENCE UNITS RANGE LAB GFRAA(LOINC ml/min/1.73 ) sqm GFR 86 Prydeinig Result Comment: GFR Population mean for , Non- Americans Ages 20-29 = 116 mL/min/1.73 sq.m. Ages 30-39 = 107 mL/min/1.73 sq.m. Ages 40-49 = 99 mL/min/1.73 sq.m. Ages 50-59 = 93 mL/min/1.73 sq.m. Ages 60-69 = 85 mL/min/1.73 sq.m. Ages 70+ = 75 mL/min/1.73 sq.m. Chronic Kidney Disease: Less than 60 mL/min/1.73 square meters End Stage Renal Disease: Less than 15 mL/min/1.73 square meters LAB GFRNO(LOINC) ml/min/1.73sqm GFR Non- >60 Result Comment: GFR Population mean for , Non- Americans Ages 20-29 = 116 mL/min/1.73 sq.m. Ages 30-39 = 107 mL/min/1.73 sq.m. Ages 40-49 = 99 mL/min/1.73 sq.m. Ages 50-59 = 93 mL/min/1.73 sq.m. Ages 60-69 = 85 mL/min/1.73 sq.m. Ages 70+ = 75 mL/min/1.73 sq.m. Chronic Kidney Disease: Less than 60 mL/min/1.73 square meters End Stage Renal Disease: Less than 15 mL/min/1.73 square meters Performed By: #### CBC, ADIFF, ANEU, BMP, GFR, TROP #### [place] [address] [address] TROP Collected: 11/16/2017 Status: F Source: [facility] 12:38 PM [facility] REPOSITORY TYPE CODE TESTS RESULT OUT OF REFERENCE UNITS RANGE LAB TROP(LOINC) 0.00-0.30 ng/mL Troponin <0.30 Result Comment: Below measuring range >=0.30 Consistent with cardiac damage, increased clinical risk and possibility of myocardial infarction. Serial measurements, clinical history, appropriate symptoms and/or ECG changes may help assess possibility of [place]. *Other non-acute coronary syndrome conditions such as CHF, myocarditis, pulmonary emboli, sepsis and cardiac surgery could result in myocardial damage and increased troponin levels. Performed By: #### CBC, ADIFF, ANEU, BMP, GFR, TROP #### [address] [address] EMERGENCY DEPARTMENT Observed: 11/12/2017 Status: F Source: [facility] SUMMARY 1:03 AM [facility] Medical Records Department [address] [place] [address] Emergency Department Summary 11/11/17 2224 MR#: [id number] Acct: [id number] Name: LYN MOMIN Rep #: [id number] : 1965 52 From: Nicola Mcdowell MD PCP: Argenis Feng Status: DEP ER - ER Visit Summary Date of Service: 11/11/17 Chief Complaint: Back pain History of Present Illness: The patient is a 52 F presenting for evaluation secondary to back pain. Patient states she is an onset of lower back pain over the course last 3-4 days she denies any injury associated with this. It is located in her lower back. There is some radiation to the left hip but nothing down the leg. She denies any bowel or bladder incontinence. Denies any fevers. Denies any personal history of IV drug abuse. No fevers or weight loss. Physical Examination: Vitals: Within normal limits General: Well-nourished well-developed no acute distress Head: Normocephalic atraumatic ENT: Moist mucous membranes Neck: Supple no JVD Cardiovascular: Heart regular rate and rhythm no murmurs Respiratory: Respirations nondistressed, lung sounds clear to auscultation bilaterally Abdominal: Soft, nontender, nondistended, normal bowel sounds, no evidence of abdominal masses or pulsatile mass Back: Normal to inspection, no midline tenderness to palpation, straight leg raise negative bilaterally, there is left paraspinal tenderness to palpation Extremities: Nontender, nonedematous, 2+ radial and PT pulses bilaterally symmetric Skin: Normal color no rash Neuro: 5/5 strength hip flexion, knee flexion, knee extension, dorsiflexion, plantarflexion, EHL. Sensation intact over all dermatomes of the lower extremities bilaterally, 2+ patellar and Achilles reflexes bilaterally symmetric, negative clonus bilaterally Test Results: None indicated Emergency Department Course and Treatment: Patient presented secondary to back pain. She has paraspinal pain, this seems mostly muscular in etiology. Patient was given a dose of Toradol and Norflex in the emergency department. Patient be discharged with a course of Naprosyn and Medrol for treatment of her pain. She was instructed to follow- up with her PCP. Disposition: Discharge Impression: 1. Lumbosacral strain This note was generated with [employer] dictation software. It may contain incorrect words, spelling, and punctuation that were not noted in review of the chart prior to signing ED Disposition - Plan for ED Patient: Disposition: Home or Assisted Living Chief Complaint: Back Diagnosis: Back pain Instructions: ED Neck Back Pain General Prescriptions: MethylPREDNISolone DosePak [Medrol DosePak] 4 mg PO UD #1 box Naproxen [Naprosyn] 500 mg PO BID PRN #20 tab Referrals: Argenis Dill, DRIER OPERATOR HEAD-C [Primary Care Provider] - 5-7 Days What to do if you have Problems For any increased pain, shortness of breath, bleeding, nausea or vomiting, chest pain, or any unexpected problems, contact your Primary Care Provider. Call [facility] ([phone]) or report to the closest Emergency Room. Call 911 if necessary. 11/12/17 0103 <Electronically signed by Nicola Mcdowell MD> Date Nicola Mcdowell MD Cosigner Signature (If Indicated): Date CC: Argenis BENITEZ ALLERGIES ALLERGIES DATE TYPE / NAME / CODE REACTION SEVERITY SOURCE CODE 07/22/2018 Drug ziprasidone Shortness of Unknown [facility] Allergy/41 HCl/P704243481(RX breath Hospital 9110177(SN NORM) Repository OMED CT) 07/22/2018 Drug ziprasidone Shortness of Unknown [facility] Allergy/41 mesylate/O0082001 breath Hospital 1302580(SN 79(RXNORM) Repository OMED CT) 07/22/2018 Drug Penicillins/F0010 Hives Unknown [facility] Allergy/41 20222(RXNORM) Hospital 3177061(SN Repository OMED CT) 07/22/2018 Drug oxycodone/Z424948 Hives Unknown [facility] Allergy/41 558(RXNORM) Hospital 5209948(SN Repository OMED CT) 07/22/2018 Drug acetaminophen/F00 Hives Unknown [facility] Allergy/41 8750106(RXNORM) Hospital 1717546(SN Repository OMED CT) 07/22/2018 Drug famotidine/A16224 Other Unknown [facility] Allergy/41 3417(RXNORM) Hospital 9321747(SN Repository OMED CT) 07/22/2018 Drug pravastatin/F0060 Hives Unknown [facility] Allergy/41 63344(RXNORM) Hospital 7952125(SN Repository OMED CT) 07/22/2018 Drug lamotrigine/F0060 Shortness of Unknown [facility] Allergy/41 78949(RXNORM) breath Hospital 8822418(SN Repository OMED CT) 07/22/2018 Drug topiramate/M30175 Other Unknown [facility] Allergy/41 5453(RXNORM) Hospital 9151322(SN Repository OMED CT) 07/22/2018 Drug latex/F663247687( Hives Unknown [facility] Allergy/41 RXNORM) Hospital 1527448(SN Repository OMED CT) 07/22/2018 Drug icosapent Other Unknown [facility] Allergy/41 ethyl/S989843815( Hospital 0954322(SN RXNORM) Repository OMED CT) 05/05/2018 Food NoLatex hives, rash, Moderate [facility] Allergy/41 burning (severity [facility] 1753292(SN modifier) Center Repository OMED CT) (qualifier value) 05/05/2018 Drug oxycodone feels funny Moderate [facility] Allergy/41 HCl/V806181209(RX (severity [facility] 7982473(SN NORM) modifier) Center Repository OMED CT) (qualifier value) 05/05/2018 Drug ziprasidone breathing Severe [facility] Allergy/41 HCl/K078458761(RX problems (severity [facility] 7132127(SN NORM) modifier) Center Repository OMED CT) (qualifier value) 05/05/2018 Drug ziprasidone breathing Severe [facility] Allergy/41 mesylate/Z4906848 problems (severity [facility] 2778274(SN 79(RXNORM) modifier) Center Repository OMED CT) (qualifier value) 05/05/2018 Drug Penicillins/F0010 hives Moderate [facility] Allergy/41 42299(RXNORM) (severity [facility] 9778698(SN modifier) Center Repository OMED CT) (qualifier value) 05/05/2018 Drug fenofibrate/F0060 hives Moderate [facility] Allergy/41 22863(RXNORM) [facility] 2729500(SN modifier) Center Repository OMED CT) (qualifier value) 05/05/2018 Drug lamotrigine/F0060 breathing Severe [facility] Allergy/41 09537(RXNORM) problems ([facility] 5571177(SN modifier) Center Repository OMED CT) (qualifier value) 05/05/2018 Drug latex/G314819887( hives, rash, Moderate [facility] Allergy/41 RXNORM) burning ([facility] 2357693(SN modifier) Center Repository OMED CT) (qualifier value) ENCOUNTERS ENCOUNTERS ADMIT/DISCHARGE ACCOUNT NUMBER ADMITTING ENCOUNTER LOCATION SOURCE CLASS 09/06/2018 [id number] Ambulatory [facility] ng:RAD Repository 08/24/2018 [id number] [facility] ng:RAD Repository 07/22/2018/ [id number] Emergency [address] ng:ED Repository 07/13/2018/ [id number] Ambulatory [address] ng:ENRoom: Repository AC15 07/13/2018/ [id number] Ambulatory BMSBuilding:BM [place] 018 S..Count includes the [facility] Repository 07/06/2018/ [id number] Emergency [address] ng:ED Repository 07/05/2018/ [id number] Ambulatory BMSBuilding:BM [place] 018 [facility] Repository 06/27/2018/ [id number] Emergency [address] ng:ED Repository 06/15/2018 [id number] [facility] ng:CVS Repository 06/15/2018 [id number] Ambulatory BMSBuilding:[facility] Repository 06/04/2018 [id number] Ambulatory [facility] ng:LABSPEC Repository 05/21/2018 [id number] Ambulatory [facility] ng:OPBI Repository 05/07/2018/ [id number] [place], Ambulatory [address] ng:PCURoom: Repository [id number]: 1 05/07/2018 [id number] [place] Ambulatory BMSBuilding:BM [facility] Repository 05/07/2018/ [id number] Ambulatory BMSBuilding:[address] Repository 05/05/2018/ [id number] Emergency [facility] 018 MEDBuilding:ED [facility] Repository 04/04/2018/ [id number] Emergency [facility] 018 MEDBuilding:ED [facility] Repository 02/19/2018 [id number] Ambulatory [facility] ng:RAD Repository 02/18/2018/ [id number] Emergency BBuilding:[address] Repository 11/16/2017/ [id number] Emergency BBuilding:[address] Repository 11/11/2017/ [id number] Emergency [address] ng:ED Repository PAYERS PAYERS ENCOUNTER GUARANTOR PAYER SUBSCRIBER SOURCE 09/06/2018 LYN Robb Primary [facility] [id number] Insurance:[facility] BAGHUGHDOB: [facility] *IN NETWORKPolicy [id number] Repository [place], [place] Number: [address]Upq: (141) [id number] [phone] () Date:7232-57-70TBSR [address]S [address] [address]SK: 09/06/2018 Secondary NOT GIVENUNK [facility] Insurance:SELF PAY Hospital INSURANCEPolicy Repository Number: Effective Date:2018-09-03 08/24/2018 LYN J Primary RUSTIE [facility] [id number] Insurance:MYCARE CRSC BAGLEYDOB: Hospital BACK [place]SILL[place] *IN [facility] [id number] Repository RDLOT Number: aries GUERRERO [id number]: (040) Date:0022-03-45JVXM [phone] (HP) CLAIMS [address] [place] [address]VM: 08/24/2018 Secondary NOT GIVENUNK [facility] Insurance:SELF PAY Hospital INSURANCEPolicy Repository Number: Effective Date:2018-08-24 07/22/2018 PAIGETIE J Primary [facility] [id number] Insurance:MYCARE CRSC BAGLEYDOB: Hospital BACK [place] *IN [facility] [id number] Repository RDLOT Number: aries GUERRERO [id number]: (500) Date:0385-73-14MCQS [phone] (HP) CLAIMS [address] [place] [address]GW: 07/22/2018 Secondary NOT GIVENUNK [facility] Insurance:SELF PAY Hospital INSURANCEPolicy Repository Number: Effective Date:2018-07-22 07/13/2018 RUSTIE J Primary [facility] [id number] Insurance:MYCARE CRSC BAGLEYDOB: Hospital BACK [place] *IN [facility] [id number] Repository RDLOT Number: aries GUERRERO [id number]: (740) Date:1364-08-21NEHV [phone] (HP) CLAIMS [address] [address]CK: 07/13/2018 Secondary NOT GIVENUNK [facility] Insurance:SELF PAY Hospital INSURANCEPolicy Repository Number: Effective Date:2018-07-05 07/13/2018 PAIGETIE J Primary [facility] [id number] Insurance:MYCARE CRSC BAGLEYDOB: Hospital BACK [place] *IN [facility] [id number] Repository RDLOT Number: aries GUERRERO [id number]: (550) Date:3098-21-45NVGC [phone] (HP) CLAIMS [address] [address]NU: 07/13/2018 Secondary NOT GIVENUNK [facility] Insurance:SELF PAY Hospital INSURANCEPolicy Repository Number: Effective Date:2018-07-13 07/06/2018 RUSTIE J Primary RUSTIE J [facility] [id number] Insurance:MYCARE CRSC BAGLEYDOB: Hospital BACK [place]LL[place] *IN [facility] [id number] Repository RDLOT Number: aries GUERRERO [id number]: (750) Date:2539-38-59CWGO [phone] (HP) CLAIMS [address] [address]NU: 07/06/2018 Secondary NOT GIVENUNK [facility] Insurance:SELF PAY Hospital INSURANCEPolicy Repository Number: Effective Date:2018-07-06 07/05/2018 RUSTIE J Primary RUSTIE J [facility] [id number] Insurance:MYCARE CRSC BAGLEYDOB: Hospital BACK [place] *IN [facility] [id number] Repository RDLOT Number: aries GUERRERO [id number]: (110) Date:1993-38-60XWCR [phone] (HP) [place]S [address] [address]IV: 07/05/2018 Secondary NOT GIVENUNK [place] [facility] Insurance:SELF PAY Hospital INSURANCEPolicy Repository Number: Effective Date:2018-07-05 06/27/2018 RUSTIE J Primary RUSTIE J [facility] [id number] Insurance:MYCARE CRSC BAGLEYDOB: Hospital BACK [place]LL[place] *IN [facility] [id number] Repository RDLOT Number: aries GUERRERO [id number]: (760) Date:6921-55-30SVNO [phone] (HP) [place]S [address] [address]EB: 06/27/2018 Secondary NOT GIVENUNK [facility] Insurance:SELF PAY Hospital INSURANCEPolicy Repository Number: Effective Date:2018-06-27 06/15/2018 LYN J Primary RUSTIE J [place] [facility] [id number] Insurance:MYCARE CRSC BAGLEYDOB: Hospital BACK [place]SILLON *IN [facility] [id number] Repository RDLOT Number: aries GUERRERO [id number]: (790) Date:6702-83-03VIPG [phone] (HP) CLAIMS [address]PT[address] [place] [place] [address]VY: 06/15/2018 Secondary NOT GIVENUNK [facility] Insurance:[facility]Y Hospital INSURANCEPolicy Repository Number: Effective Date:2018-05-27 06/15/2018 LYN J Primary RUSTIE J [facility] [id number] Insurance:[facility]ARE [facility] BAGLEYDOB: Hospital BACK [place] *IN [facility] [id number] Repository RDLOT Number: [place] [id number]: (650) Date:[id number] [phone] (HP) CLAIMS [address] [place] [address]PU: 06/15/2018 Secondary NOT GIVENUNK [facility]Y [facility] INSURANCEPolicy Repository Number: Effective Date:2018-06-15 06/04/2018 Paigetie J Primary Rustie J [facility] [id number] Insurance:[facility]ARE CR[facility] BagleyDOB: Hospital BACK [place] *IN [facility] [id number] Repository RDLOT Number: [place] [id number]: (190) Date:3065-53-51LMDD [phone] (HP) CLAIMS [address] [place] [address]AG: 06/04/2018 Secondary NOT GIVENUNK [facility] Insurance:SELF PAY Hospital INSURANCEPolicy Repository Number: Effective Date:2018-06-04 05/21/2018 Paigetie J Primary Rustie J [facility] [id number] Insurance:[facility]CARE CR[facility] BagleyDOB: Hospital BACK [place] *IN [facility] [id number] Repository RDLOT Number: aries GUERRERO [id number]: ([phone]) Date:0307-68-91CDIL [phone] (HP) CLAIMS [address], [place] [address]OC: 05/21/2018 [facility] INSURANCEPolicy Repository Number: Effective Date:2018-04-13 05/07/2018 Rustie J Primary Rustie [facility] [id number] Insurance:MYCARE CRSC BagleyDOB: Hospital BACK [place] *IN [facility] [id number] Repository RDLOT Number: aries GUERRERO [id number]: ([phone]) Date:3108-71-33DYFF [phone] (HP) CLAIMS [address] [address]IT: 05/07/2018 Secondary NOT GIVENUNK [facility] Insurance:SELF PAY Hospital INSURANCEPolicy Repository Number: Effective Date:2018-05-07 05/07/2018 Paigetie J Primary Rustie [facility] [id number] Insurance:MYCARE CRSC BagleyDOB: Hospital BACK [place] *IN [facility] [id number] Repository RDLOT Number: aries GUERRERO [id number]: ([phone]) Date:0529-89-84POSB [phone] (HP) [place]S [address] [address]IQ: 05/07/2018 Secondary [facility]SELF PAY Hospital INSURANCEPolicy Repository Number: Effective Date:2018-05-07 05/07/2018 Rustie J Primary [facility]ie [facility] [id number] Insurance:MYCARE CRSC BagleyDOB: Hospital BACK [place] *IN [facility] [id number] Repository RDLOT Number: aries GUERRERO [id number] [phone]: ([phone]) Date:5190-71-04FYOS [phone] (HP) CLAIMS OCTAVIOO JOSE GUADALUPE [address] [place] [address]JV: 05/07/2018 [facility] Repository Number: Effective Date:2018-05-07 05/05/2018 RUSTIE J Primary RUSTIE J [facility] [id number] [facility]B: [facility] [id number] Center Repository [place], [place] Number: [address] [address]Alz: ([phone] [id number] [place], [place] [phone] (HP) Date:2013-04-07 488[address]Tey: (HP) 05/05/2018 Secondary RUSTIE J [facility] Insurance:[facility]ICAID [facility]: [facility] Number: [id number] Center Repository [id number] [address] Date: [place], [place] [address]Iqh: (HP) 04/04/2018 RUSTIE J Primary RUSTIE J [facility] [id number] [facility] GLADWINB: [facility] BLACK [facility] [id number] Center Repository [place], [place] Number: [address] [address]Egr: ([phone]) [id number] [place], [place] [phone] (HP) Date:2013-04-07 712[address]Btj: (HP) 04/04/2018 Secondary RUSTIE J [facility] Insurance:MED[place]ID [place]: [facility] Number: [id number] Center Repository [id number] [address] Date:2015-01-19 [place], [place] [address]Cwa: (HP) 02/19/2018 Rustie J Primary Rustie J [facility] [id number] Insurance:[facility] BagleyDOB: Hospital BACK [place] *IN [facility] [id number] Repository RDLOT Number: [address], [place] [id number]: (740) Date:9446-51-00WLZR [phone] (HP) CLAIMS [address] [place] [address]RY: 02/19/2018 [facility] Repository Number: Effective Date:2018-02-17 02/18/2018 LYN J Primary [facility]: [facility]: [facility] [id number] [facility] [id number] Repository [address] Number: [id number] [place], [place] Date:2018-02-18 - [address] [place] [address]Spb: ([phone] [phone]: (HP) Name:NATTN Claims [phone] [address], (HP)Tel: (342) [place] [address]SZ: (WP) [phone] 11/16/[address] [facility]: [facility] [id number] [facility] [id number] Repository [address] Number: [id number], [place] Date:2017-04-04 - [address] [place] [address]Cun: ([phone] [phone]: (HP) Name:NATTN Claims [phone] [address], (HP)Tel: (591) [place] [address]CC: (WP) [phone] 11/11/2017 Lyn Robb Primary Lyn [id number] Insurance:[facility] BagleyDOB: Hospital [place] *[facility] [id number] Repository RDLOT Number: [address] [place] [address] [id number] [id number]: (740) Date:2313-25-92UNFD [phone] (HP) CLAIMS DE[address] [place] [address]IU: 11/11/2017 Secondary NOT GIVENUNK [facility] Insurance:SELF PAY Hospital INSURANCEPolicy Repository Number: Effective Date:2017-11-11
== END ==
LOC: RAD.FUTURE 14:01 → RAD 14:03
PROVIDERS: Family Provider Nurse Practitioner Family; PCP Nurse Practitioner Family; Referring Provider Nurse Practitioner Family; Visit Provider Nurse Practitioner Family
DX: J18.9 Pneumonia, unspecified organism (principal); M54.2 Cervicalgia
CPT/HCPCS: 71046; 72052